=== PATIENT | male | born 1990 | race Caucasian/White ===

== ENCOUNTER 2016-08-06 10:38 | Inpatient (IN) | payer MEDICAID ==
[2016-08-06 12:38] LABS: BASO % 0.6 % (0.0-2.0); EOS # 0.1 K/uL (0.0-0.7); EOS % 1.7 % (0.0-4.0); HEMATOCRIT 48.5 % (35.0-51.0); LYMPH # 1.4 K/uL (1.0-4.3); LYMPH % 19.9 % (20.0-40.0); MEAN CORPUSCULAR HGB CONC 32.5 g/dL (33.0-37.0); MEAN PLATELET VOLUME 9.5 fL (7.2-11.7); MONO # 0.6 K/uL (0.0-0.8); RED CELL DISTRIBUTION WIDTH 13.9 % (11.5-14.5); WHITE BLOOD COUNT 7.1 K/uL (4.8-10.8)
[2016-08-06 12:39] LABS: MEAN CELL VOLUME 83.2 fL (80.0-94.0)
[2016-08-06 12:41] LABS: URINE BILIRUBIN NEGATIVE (NEGATIVE); URINE BLOOD NEGATIVE (NEGATIVE); URINE COLOR Yellow (YELLOW); URINE GLUCOSE (UA) NORMAL (Normal); URINE KETONE NEGATIVE (NEGATIVE); URINE LEUKOCYTE ESTERASE NEG Leu/uL (Negative); URINE PROTEIN NEGATIVE (NEGATIVE); URINE UROBILINOGEN NORMAL mg/dL (0.2-1.0)
[2016-08-06 12:46] LABS: CHLORIDE 100 mmol/L (98-107)
[2016-08-06 12:47] LABS: POTASSIUM 3.7 mmol/L (3.6-5.2); SODIUM 141 mmol/L (132-148)
[2016-08-06 12:49] LABS: ALB/GLOB RATIO 1.4 (1.0-2.1); AST/SGOT 30 U/L (17-59); BILIRUBIN,TOTAL 0.3 mg/dL (0.2-1.3); CARBON DIOXIDE 26 mmol/L (22-30); GFR AFRICAN-AMERICAN > 60; TOTAL PROTEIN 7.3 g/dL (6.3-8.3)
[2016-08-06 12:50] LABS: ALCOHOL SERUM < 10 mg/dl (0-10); ALKALINE PHOSPHATASE 96 U/L (38-126); ALT/SGPT 46 U/L (21-72); BLOOD UREA NITROGEN 11 mg/dL (9-20); CALCIUM 8.9 mg/dl (8.6-10.4); GLUCOSE,RANDOM 100 mg/dL (75-110)
--- NOTE | 2016-08-06 13:11 | C.PDOC ---
History Of Present Illness 25 year old male with a history of cocain and alcohol abuse, presents to the ED requesting alcohol detox. Patient states his last drink was yesterday and has no physical complaints at this time. Time Seen by Provider: 08/06/16 11:44 Chief Complaint (Nursing): Substance Abuse History Per: Patient History/Exam Limitations: no limitations Current Symptoms Are (Timing): Still Present Modifying Factor(s): Alcohol Past Medical History Reviewed: Historical Data, Nursing Documentation, Vital Signs Vital Signs: Last Vital Signs Temp 97.6 F 08/07/16 18:47 Pulse 95 H 08/07/16 18:47 Resp 18 08/07/16 18:47 BP 145/84 08/07/16 18:47 Pulse Ox 97 08/07/16 18:47 - Medical History PMH: Anxiety, Asthma, HTN Family History: States: Unknown Family Hx - Social History Hx Alcohol Use: Yes Hx Substance Use: No - Immunization History Hx Tetanus Toxoid Vaccination: Yes Hx Influenza Vaccination: No Hx Pneumococcal Vaccination: No Review Of Systems Except As Marked, All Systems Reviewed And Found Negative. Constitutional: Positive for: Other (+Alcohol detox). Negative for: Fever, Chills Cardiovascular: Negative for: Chest Pain Respiratory: Negative for: Shortness of Breath Gastrointestinal: Negative for: Nausea, Vomiting Psych: Negative for: Withdrawal Physical Exam - Physical Exam Appears: Non-toxic, No Acute Distress Skin: Normal Color, Warm, Dry Head: Atraumatic, Normacephalic Eye(s): bilateral: Normal Inspection Oral Mucosa: Moist Chest: Symmetrical, No Deformity Cardiovascular: Rhythm Regular Respiratory: Normal Breath Sounds, No Accessory Muscle Use, No Rales, No Rhonchi , No Wheezing Extremity: Normal ROM Neurological/Psych: Oriented x3, Normal Speech, Normal Cognition ED Course And Treatment - Laboratory Results Result Diagrams: 08/06/16 12:31 08/06/16 12:31 Lab Interpretation: Abnormal (tox + cocaine) O2 Sat by Pulse Oximetry: 95 (Room air) Pulse Ox Interpretation: Normal Progress Note: Blood work and urinalysis ordered and reviewed. Case discussed with the crisis healthcare market consultant who agreed to evaluate the patient. Disposition Doctor Will See Patient In The: Hospital Counseled Patient/Family Regarding: Studies Performed, Diagnosis - Disposition Disposition: HOSPITALIZED Disposition Time: 18:00 Condition: GOOD - Clinical Impression Clinical Impression: Drug abuse, Alcohol dependence - Scribe Statement The provider has reviewed the documentation as recorded by the Scribe Sandra Mann. Provider Attestation: All medical record entries made by the Scribe were at my direction and personally dictated by me. I have reviewed the chart and agree that the record accurately reflects my personal performance of the history, physical exam, medical decision making, and the department course for this patient. I have also personally directed, reviewed, and agree with the discharge instructions and disposition.
[2016-08-06] MEDS: Multiple Vitamins Tab PO SCH (16:07)
[2016-08-07] MEDS: Multiple Vitamins Tab PO SCH (10:19)
--- NOTE | 2016-08-07 12:37 | PCM.PSYCH ---
Initial Psychiatric Evaluation - Initial Psychiatric Evaluation Type of Admission: Voluntary Legal Status: Capacity Chief Complaint (in patient's own words): "I need to stop alcohol" History of Present Illness and Precipitating Events: The patient is seen, chart reviewed and case discussed. This is a 25-year-old single male, with one child who is 2 years old and with his ex-girlfriend. 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 He stays with friends and practically homeless. The patient is here for alcohol detox and he admits to drinking up to one bottle of vodka daily and 12 pack beer. He has been drinking for the last 10 years and this is his first detox. He has never been to AA or rehabilitation. He also snorts cocaine 2 g per day for the past 3 years. He denies all other drugs Feels anxious and panicky at times. Past psych history: Panic disorder but not treated. No admissions and no suicide attempts. Family psych history: Denies Medical history: Asthma Current Medications: Active Medications Generic Name Dose Route Start Last Admin Trade Name Freq PRN Reason Stop Dose Admin Albuterol 1 puff 08/06/16 15:27 Ventolin Hfa 90 Mcg/Actuation (8 G) INH RQ4 PRN SOB Amlodipine Besylate 5 mg 08/06/16 15:30 08/07/16 10:20 Norvasc PO 5 mg DAILY ANNA MARIE Administration Chlordiazepoxide 25 mg 08/06/16 15:29 Librium PO Q4H PRN Alcohol Withdrawal Chlordiazepoxide 25 mg 08/06/16 18:00 08/07/16 11:24 Librium PO 08/10/16 17:59 25 mg Q6 ANNA MARIE Administration Taper Clonidine HCl 0.1 mg 08/06/16 15:29 Catapres PO Q4H PRN Symptoms of alcohol withdrawl Escitalopram Oxalate 5 mg 08/07/16 10:45 Lexapro PO DAILY ANNA MARIE Folic Acid 1 mg 08/06/16 15:30 08/07/16 10:19 Folic Acid PO 1 mg DAILY ANNA MARIE Administration Gabapentin 300 mg 08/06/16 18:00 08/07/16 10:19 Neurontin PO 300 mg BID ANNA MARIE Administration Hydroxyzine HCl 50 mg 08/06/16 15:27 Atarax PO Q6H PRN Anxiety Ibuprofen 600 mg 08/06/16 15:27 Motrin Tab PO Q6H PRN Pain, moderate (4-7) Montelukast Sodium 10 mg 08/06/16 22:00 08/06/16 21:32 Singulair PO 10 mg HS ANNA MARIE Administration Multivitamins 1 tab 08/06/16 15:30 08/07/16 10:19 Hexavitamin PO 1 tab DAILY ANNA MARIE Administration Pneumococcal Polyvalent Vaccine 0.5 ml 08/08/16 09:00 Pneumovax 23 Vaccine IM 08/08/16 09:01 .ONCE ONE Thiamine HCl 100 mg 08/06/16 15:30 08/07/16 10:19 Vitamin B1 Tab PO 100 mg DAILY ANNA MARIE Administration Trazodone HCl 100 mg 08/06/16 15:27 08/06/16 21:32 Desyrel PO 100 mg HS PRN Administration Insomnia Past Psychiatric History - Past Psychiatric History Previous Treatment History: None Pertinent Medical Hx (Current Medical&Sleep Prob, Allergies): Allergies Allergy/AdvReac Type Severity Reaction Status Date / Time Penicillins Allergy Verified 08/06/16 10:56 Albuterol HFA [Ventolin HFA 90 mcg/actuation (8 g)] 2 puff IH [id number] PRN #1 puff 06/15/15 Montelukast [Singulair] 10 mg PO DAILY #30 tab 06/15/15 Review of Systems - Neurological Neurological: UNREMARKABLE - Psychiatric Psychiatric: Abnormal Sleep Pattern, Anxiety, Irritability. absent: Depression , Hallucinations, Homicidal Ideation, Paranoia, Suicidal Ideation Mental Status Examination - Personal Presentation Personal Presentation: Looks older than stated age - Affect Affect: Constricted - Motor Activity Motor Activity: Calm - Reliability in Providing Information Reliability in Providing Information: Good - Speech Speech: Organized - Mood Mood: Anxious - Formal Thought Process Formal Thought Process: No Impairment - Cognitive Functions Orientation: Person, Place, Situation, Time Sensorium: Alert Attention/Concentration: Attentive Estimate of Intelligence: Average Judgement: Intact, as evidence by: Insight regarding need for hospitalization Memory: Recent intact, as evidence by: Ability to recall events of the day, Remote intact, as evidenced by: Abilit to recall sig. life events - Risk Risk: Withdrawal, Diminished functioning - Strength & Assets Inventory Strength & Assets Inventory: Cooperative - Limitations Limitations: Living alone DSM 5 DX - DSM 5 DSM 5 Diagnosis: Alcohol withdrawal Alcohol use disorder, severe Panic disorder, without agoraphobia Cocaine use disorder, severe - Recommended/Plan of Treatment Treatment Recommendations and Plan of Treatment: Alcohol: -Librium detox -As needed medications -[place] and CBT -Attend groups and activities -Support and psychoeducation Cocaine: -Gabapentin -As needed medications -[place] and CBT -Attend groups and activities -Support and psychoeducation Any disorder: -Lexapro -CBT and supportive psychotherapy 34 minutes Projected ELOS: 4 days Prognosis: Good with treatment Discharge Plan and Discharge Criteria: No withdrawal Refer to IOP - Smoking Cessation Smoking Cessation Initiated: Yes
[2016-08-08] MEDS ORDERED: Pneumococcal 23-Valent Vaccine IM ONE (09:00)
[2016-08-08] MEDS: Multiple Vitamins Tab PO SCH (09:21)
--- NOTE | 2016-08-08 16:27 | PCM.PYCHPN ---
Psychiatric Progress Note - Psychiatric Progress Note Patient seen today, length of contact: 20 min Patient Chief Complaint: "I didn't get any sleep" Problems Identified/Issues Discussed: The pt is seen, chart reviewed, case discussed with staff. Pt's mood is low today. Pt states that he feels anxious, depressed. Pt admits to vomiting, chills, sweating, headaches and shaking. Pt states that the symptoms interfered with his sleep. Pt denies thoughts of suicide or thoughts of hurting other people. Pt stated that he has been having visual hallucinations of shadows passing by. His current plan is to enter a rehab facility in [place]. After care discussed, support and psychoeducation given. DSM 5 Symptoms Update: Alcohol withdrawal Alcohol use disorder, severe Panic disorder, without agoraphobia Cocaine use disorder, severe Medication Change: Yes (Librium Taper ) Medical Record Reviewed: Yes Mental Status Examination - Cognitive Function Orientation: Person, Place, Situation, Time Memory: Intact Attention: WNL Concentration: WNL Association: WNL Fund of Knowledge: WNL - Mood Mood: Depressed, Anxious Additional comments: Irritable - Affect Affect: Constricted - Speech Speech: Appropriate - Formal Thought Process Formal Thought Process: Hallucinations - Suicidal Ideation Suicidal Ideation: No - Homicidal Ideation Homicidal Ideation: No Goal/Treatment Plan - Goal/Treatment Plan Need for Continued Stay: Severe depression anxiety, Discharge may exacerbated symptoms Progress Toward Problem(s) and Goals/Treatment Plan: Alcohol: -Librium detox -As needed medications -[place] and CBT -Attend groups and activities -Support and psychoeducation Cocaine: -Gabapentin -As needed medications -[place] and CBT -Attend groups and activities -Support and psychoeducation Any disorder: -Lexapro -CBT and supportive psychotherapy Estimated Date of D/C: 08/10/16 - Smoking Cessation Smoking Cessation Initiated: No
[2016-08-08] MEDS: Albuterol HFA 90 mcg/actuation (8 g) INH PRN (19:35)
[2016-08-09] MEDS: Multiple Vitamins Tab PO SCH (10:06)
--- NOTE | 2016-08-09 22:29 | PCM.PYCHPN ---
Psychiatric Progress Note - Psychiatric Progress Note Patient seen today, length of contact: 17 min Patient Chief Complaint: "I didn't get any sleep" Problems Identified/Issues Discussed: The pt is seen, chart reviewed, case discussed with staff. The pt is compliant with medications and reports no side-effects. Symptoms are improving but needs more time to stabilize. Still c/o anxiety and shakes but has mild tremors only After care discussed, support and psychoeducation given. [place] and CBT used briefly. Medication Change: Yes (Librium Taper ) Medical Record Reviewed: Yes Mental Status Examination - Cognitive Function Orientation: Person, Place, Situation, Time Memory: Intact Attention: WNL Concentration: WNL Association: WNL Fund of Knowledge: WNL - Mood Mood: Depressed, Anxious - Affect Affect: Constricted - Speech Speech: Appropriate - Formal Thought Process Formal Thought Process: Hallucinations - Suicidal Ideation Suicidal Ideation: No - Homicidal Ideation Homicidal Ideation: No Goal/Treatment Plan - Goal/Treatment Plan Need for Continued Stay: Severe depression anxiety, Discharge may exacerbated symptoms Progress Toward Problem(s) and Goals/Treatment Plan: Alcohol: -Librium detox -As needed medications -[place] and CBT -Attend groups and activities -Support and psychoeducation Cocaine: -Gabapentin -As needed medications -[place] and CBT -Attend groups and activities -Support and psychoeducation Any disorder: -Lexapro -CBT and supportive psychotherapy Estimated Date of D/C: 08/10/16
[2016-08-09] MEDS: Albuterol HFA 90 mcg/actuation (8 g) INH PRN (23:44)
--- NOTE | 2016-08-10 08:29 | PCM.PYCHDC ---
Mental Status Examination - Mental Status Examination Orientation: Person, Place, Situation, Time Memory: Intact Mood: Anxious Affect: Broad Speech: Appropriate Attention: Poor Concentration: Poor Association: WNL Fund of Knowledge: Poor Formal Thought Process: No Impairment Suicidal Ideation: No Current Homicidal Ideation?: No Discharge Summary - Discharge Note Reason for Hospitalization: heroin detox Consultations:: List each consultation separately and include: 1. Reason for request. 2. Findings. 3. Follow-up Summary of Hospital Course include:: 1. Description of specific treatment plan utilized for patients during their course of treatmen. 2. Summarize the time- course for resolution of acute symptoms and/or regressed behaviors. 3. Describe issues identified and worked on during hospitalization. 4. Describe medication utilized. 5. Describe medical problems identified and treated. 6. Reassessment of suicide risk Summary of Hospital Course: The patient is seen, chart reviewed and case discussed. On admission: This is a 25-year-old single male, with one child who is 2 years old and with his ex-girlfriend. 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 He stays with friends and practically homeless. The patient is here for alcohol detox and he admits to drinking up to one bottle of vodka daily and 12 pack beer. He has been drinking for the last 10 years and this is his first detox. He has never been to AA or rehabilitation. He also snorts cocaine 2 g per day for the past 3 years. He denies all other drugs Feels anxious and panicky at times. Past psych history: Panic disorder but not treated. No admissions and no suicide attempts. Family psych history: Denies Medical history: Asthma Hospital course: The pt was admitted and started on treatment with psychotherapy, support, psychoeducation and medications. [place] and CBT used. The pt attended groups and activities, as well as milieu therapy. All the risks and benefits of medications are discussed and the patient understood and agreed. After care discussed with the patient. He is accepted by [facility] in and went there, however even today he had some anxiety. reassurance given - Final Diagnosis (DSM 5) Condition upon Discharge: GOOD DSM 5: Opioid withdrawal Opioid use d/o severe Anxiety d/o - unspecified Cocaine use d/o - severe Disposition: REHAB FACILITY/REHAB UNIT Follow-up Treatment Plan: Continue below medications after discharge. Follow after care plan as discussed at [facility] Use relapse prevention skills Return to ER or call 911 if suicidal, homicidal or symptoms relapse. Stay away from stress, alcohol and drugs. Prescriptions/Medication Reconciliation: traZODone [Desyrel] 100 mg PO HS PRN #30 tab PRN Reason: Insomnia Multivitamins [Hexavitamin] 1 tab PO DAILY #30 tab Escitalopram [Lexapro] 10 mg PO DAILY #30 tab Gabapentin [Neurontin] 300 mg PO TID #90 cap amLODIPine [Norvasc] 5 mg PO DAILY #30 tab Montelukast [Singulair] 10 mg PO HS #30 tab - Smoking Cessation Smoking Cessation Medication prescribed: No - Antipsychotic Medications Pt discharged on 2 or more routine antipsychotic medications: No
[2016-08-10 08:56] VITALS: BP 142/86; PULSE 95; RESP 20; TEMP 98.2; O2SAT 95
[2016-08-10] MEDS: Multiple Vitamins Tab PO SCH (09:07)
== END 2016-08-10 11:00 | DRG 751 ==
LOC: C.ER 10:38 → C.7D 14:35
PROVIDERS: ADMIT Psychiatry & Neurology Psychiatry; ATTEND Psychiatry & Neurology Psychiatry
PROC: HZ2ZZZZ Detoxification Services for Substance Abuse Treatment (ICD-10-PCS; principal; 2016-08-07)
PROC: HZ32ZZZ Individual Counseling for Substance Abuse Treatment, Cognitive-Behavioral (ICD-10-PCS; 2016-08-07)
PROC: HZ42ZZZ Group Counseling for Substance Abuse Treatment, Cognitive-Behavioral (ICD-10-PCS; 2016-08-07)
PROC: HZ46ZZZ Group Counseling for Substance Abuse Treatment, Psychoeducation (ICD-10-PCS; 2016-08-07)
PROC: HZ36ZZZ Individual Counseling for Substance Abuse Treatment, Psychoeducation (ICD-10-PCS; 2016-08-07)
PROC: HZ59ZZZ Individual Psychotherapy for Substance Abuse Treatment, Supportive (ICD-10-PCS; 2016-08-07)
DX: F10.239 Alcohol dependence with withdrawal, unspecified (principal); F14.10 Cocaine abuse, uncomplicated; I10 Essential (primary) hypertension; J45.909 Unspecified asthma, uncomplicated; F41.0 Panic disorder [episodic paroxysmal anxiety]; F41.8 Other specified anxiety disorders

== ENCOUNTER 2016-09-18 09:51 | Emergency (ER) | payer MEDICAID ==
[2016-09-18 10:06] VITALS: BP 141/97; PULSE 85; RESP 18; TEMP 98.1; O2SAT 96
--- NOTE | 2016-09-18 10:21 | C.PDOC ---
History Of Present Illness 26-year-old male, PMHx includes Hypertension, Asthma and Anxiety, presents to the emergency department requesting refill for all his medications, including b/ p and asthma meds. Sates he is unable to see his PMD until next month. Patient denies any other complaints at this time. No SI/HI. hallucinations Time Seen by Provider: 09/18/16 10:18 Chief Complaint (Nursing): Med Refill History Per: Patient History/Exam Limitations: no limitations Past Medical History Reviewed: Historical Data, Nursing Documentation, Vital Signs Vital Signs: Last Vital Signs Temp 98.1 F 09/18/16 10:05 Pulse 85 09/18/16 10:05 Resp 18 09/18/16 10:05 BP 141/97 H 09/18/16 10:05 Pulse Ox 96 09/18/16 10:39 - Medical History PMH: Anxiety, Asthma, HTN - [facility] Procedures DETOXIFICATION SERVICES FOR SUBSTANCE ABUSE TREATMENT (08/06/16) GROUP BAND HEAD SAW OPERATOR FOR SUBSTANCE ABUSE TREATMENT, PSYCHOEDUCATION (08/06/16) GROUP BAND HEAD SAW OPERATOR FOR SUBSTANCE ABUSE, COGNITIVE BEHAVIORAL (08/06/16) INDIV BAND HEAD SAW OPERATOR FOR SUBSTANCE ABUSE TREATMENT, PSYCHOEDUCATION (08/06/16) INDIV BAND HEAD SAW OPERATOR FOR SUBSTANCE ABUSE, COGNITIVE BEHAVIORAL (08/06/16) INDIV PSYCHOTHERAPY FOR SUBSTANCE ABUSE TREATMENT, SUPPORT (08/06/16) Family History: States: No Known Family Hx - Social History Hx Alcohol Use: Yes Hx Substance Use: No - Immunization History Hx Tetanus Toxoid Vaccination: Yes Hx Influenza Vaccination: No Hx Pneumococcal Vaccination: No Review Of Systems Except As Marked, All Systems Reviewed And Found Negative. Constitutional: Negative for: Fever Cardiovascular: Negative for: Chest Pain Respiratory: Negative for: Cough, Shortness of Breath, Wheezing Gastrointestinal: Negative for: Vomiting Neurological: Negative for: Headache, Dizziness Physical Exam - Physical Exam Appears: Non-toxic, No Acute Distress Skin: Warm, Dry, No Rash Head: Atraumatic Eye(s): bilateral: Normal Inspection Nose: Normal Oral Mucosa: Moist Neck: Normal ROM Respiratory: No Accessory Muscle Use Extremity: Normal ROM Neurological/Psych: Oriented x3 ED Course And Treatment O2 Sat by Pulse Oximetry: 96 Medical Decision Making Medical Decision Making: will refill meds, not actively pyschotic, requesting refills of meds until pmd followup Disposition - Disposition Referrals: [facility] [Outside] [facility] [Outside] [email or web address] [Outside] Disposition: HOME/ ROUTINE Disposition Time: 10:52 Condition: STABLE Additional Instructions: please followup outpt for all medication refills. return to er with worsening symptoms or concerns. Prescriptions: Albuterol HFA [Ventolin HFA 90 mcg/actuation (8 g)] 1 puff IH Q4 PRN #1 inhaler PRN Reason: Wheezing amLODIPine [Norvasc] 5 mg PO DAILY #20 tab Escitalopram Oxalate [Lexapro] 5 mg PO DAILY #20 tab Gabapentin [Neurontin] 300 mg PO BID #28 cap hydrOXYzine HCl [Atarax] 50 mg PO Q6 PRN #20 tab PRN Reason: Anxiety Montelukast [Singulair] 10 mg PO HS PRN #20 tab PRN Reason: Anxiety Thiamine HCl [B-1] 100 mg PO DAILY #20 tablet traZODone [Desyrel] 100 mg PO HS PRN #7 tab PRN Reason: Insomnia Instructions: Medicine Refill (ED) - Clinical Impression Clinical Impression: Medication refill - Scribe Statement The provider has reviewed the documentation as recorded by the Anthonyibdhara Oconnor All medical record entries made by the Scribe were at my direction and personally dictated by me. I have reviewed the chart and agree that the record accurately reflects my personal performance of the history, physical exam, medical decision making, and the department course for this patient. I have also personally directed, reviewed, and agree with the discharge instructions and disposition.
== END 2016-09-18 10:38 | disposition home or self-care (01) ==
LOC: C.ER 09:51
DX: Z76.0 Encounter for issue of repeat prescription (principal); I10 Essential (primary) hypertension; J45.909 Unspecified asthma, uncomplicated; F41.9 Anxiety disorder, unspecified

== ENCOUNTER 2016-10-05 07:34 | Inpatient (IN) | payer MEDICAID ==
[2016-10-05] MEDS ORDERED: Albuterol-Ipratrop 3 mg / 0.5 (3 ml) UD ONE (07:49)
[2016-10-05] MEDS: Albuterol-Ipratrop 3 mg / 0.5 (3 ml) UD IH SCH ×3 (07:55→08:25)
[2016-10-05 08:11] LABS: BASO # 0.1 K/uL (0.0-0.2); BASO % 0.5 % (0.0-2.0); EOS # 0.1 K/uL (0.0-0.7); EOS % 0.7 % (0.0-4.0); HEMATOCRIT 47.4 % (35.0-51.0); LYMPH # 1.1 K/uL (1.0-4.3); LYMPH % 7.2 % (20.0-40.0); MEAN CELL VOLUME 83.3 fL (80.0-94.0); MEAN CORPUSCULAR HEMOGLOBIN 27.8 pg (27.0-31.0); MEAN CORPUSCULAR HGB CONC 33.4 g/dL (33.0-37.0); MONO # 0.8 K/uL (0.0-0.8); MONO % 5.5 % (0.0-10.0); PLATELET COUNT 219 K/uL (130-400); RED CELL DISTRIBUTION WIDTH 14.7 % (11.5-14.5); WHITE BLOOD COUNT 14.8 K/uL (4.8-10.8)
[2016-10-05 08:22] LABS: CHLORIDE 105 mmol/L (98-107)
[2016-10-05 08:23] LABS: SODIUM 139 mmol/L (132-148)
[2016-10-05 08:24] LABS: POTASSIUM 3.7 mmol/L (3.6-5.2)
[2016-10-05 08:26] LABS: ALB/GLOB RATIO 1.5 (1.0-2.1); ALKALINE PHOSPHATASE 101 U/L (38-126); ALT/SGPT 33 U/L (21-72); AST/SGOT 35 U/L (17-59); BILIRUBIN,TOTAL 0.7 mg/dL (0.2-1.3); BLOOD UREA NITROGEN 12 mg/dL (9-20); CALCIUM 8.7 mg/dl (8.6-10.4); CARBON DIOXIDE 23 mmol/L (22-30); GFR AFRICAN-AMERICAN > 60; GLUCOSE,RANDOM 122 mg/dL (75-110); TOTAL PROTEIN 6.8 g/dL (6.3-8.3)
[2016-10-05 08:43] LABS: NEUTROPHIL 89 % (50-75); TOTAL CELLS COUNTED 100
--- NOTE | 2016-10-05 08:44 | C.PDOC ---
History Of Present Illness Patient is a 26 y/o male, whose PMHx includes asthma, presents to the ED for evaluation of increased shortness of breath for the last 3-4 days. Pt reports using his albuterol nebulizer at home with no relief. Pt has been seen here multiple times in the past with similar complaints, but has never been admitted to ICU or intubated in the past. Pt was given 3 nebulizer treatments, IV Solumedrol, and Magnesium in field. Otherwise, pt denies any fever, chills, n/v/ d, chest pain, cough, or any other associated symptoms at this time. Time Seen by Provider: 10/05/16 07:44 Chief Complaint (Nursing): Respiratory Distress History Per: Patient History/Exam Limitations: no limitations Onset/Duration Of Symptoms: Days (4) Current Symptoms Are (Timing): Still Present Current Respiratory Medications: Albuterol Severity: None Pain Scale Rating Of: 0 Associated Symptoms: denies: Fever, Chills, Sweating, Chest Pain, Bloody Cough, Productive Cough, Heart Racing, Leg/Calf Pain, Ankle/Leg Swelling, Dizziness, Light-headedness, Anxiety, Tingling In Hands Or Face, Musle Spasms In Hands Or Feet Recent travel outside of the [place]: No Additional History Per: Patient, EMS Past Medical History Reviewed: Historical Data, Nursing Documentation, Vital Signs Vital Signs: Last Vital Signs Temp 97.1 F L 10/05/16 16:24 Pulse 107 H 10/05/16 16:45 Resp 22 10/05/16 16:45 BP 119/67 10/05/16 16:45 Pulse Ox 93 L 10/05/16 16:45 - Medical History PMH: Anxiety, Asthma, HTN Denies: Diabetes, Hepatitis, HIV, Chronic Kidney Disease, Seizures, Sexually Transmitted Disease - [facility] Procedures DETOXIFICATION SERVICES FOR SUBSTANCE ABUSE TREATMENT (08/06/16) GROUP PEER SPECIALIST FOR SUBSTANCE ABUSE TREATMENT, PSYCHOEDUCATION (08/06/16) GROUP PEER SPECIALIST FOR SUBSTANCE ABUSE, COGNITIVE BEHAVIORAL (08/06/16) INDIV PEER SPECIALIST FOR SUBSTANCE ABUSE TREATMENT, PSYCHOEDUCATION (08/06/16) INDIV PEER SPECIALIST FOR SUBSTANCE ABUSE, COGNITIVE BEHAVIORAL (08/06/16) INDIV PSYCHOTHERAPY FOR SUBSTANCE ABUSE TREATMENT, SUPPORT (08/06/16) Family History: States: Unknown Family Hx - Social History Hx Alcohol Use: Yes Hx Substance Use: No - Immunization History Hx Tetanus Toxoid Vaccination: Yes Hx Influenza Vaccination: No Hx Pneumococcal Vaccination: No Review Of Systems Except As Marked, All Systems Reviewed And Found Negative. Constitutional: Negative for: Fever, Chills Cardiovascular: Negative for: Chest Pain, Palpitations, Light Headedness Respiratory: Positive for: Shortness of Breath. Negative for: Cough, Sputum Gastrointestinal: Negative for: Nausea, Vomiting, Abdominal Pain Neurological: Negative for: Headache, Dizziness Physical Exam - Physical Exam Appears: Non-toxic, Other (In mild respiratory distress) Skin: Normal Color, Warm, Dry Head: Atraumatic, Normacephalic Eye(s): bilateral: Normal Inspection, EOMI Neck: Normal ROM, Supple Chest: Symmetrical, No Tenderness Cardiovascular: Rhythm Regular, No Murmur Respiratory: No Rales, No Rhonchi, Wheezing (diffuse) Gastrointestinal/Abdominal: Soft, No Tenderness Extremity: Normal ROM Neurological/Psych: Oriented x3, Normal Speech, Normal Cognition ED Course And Treatment - Laboratory Results Result Diagrams: 10/05/16 07:59 10/05/16 07:59 ECG: Interpreted By Me, Viewed By Me ECG Rhythm: Sinus Tachycardia ECG Interpretation: Normal Rate From EC (bpm) O2 Sat by Pulse Oximetry: 93 (on RA) - Radiology CXR: Interpreted by Me, Viewed By Me CXR Interpretation: Yes: Infiltrates (right lower lobe) Progress Note: Labs, CXR, EKG ordered and reviewed. Pt was given nebulizer treatments, and Toradol in the ER. Medical Decision Making Medical Decision Making: Treated with multiple nebs Post (+) cxr cultures done pt started on avalox as he is pen allergic With small amount left in IV pt noted generalized urticaria IV stopped and pt treated with IV benadryl In view of the ongoing wheezing and SOB with (+) CXR will need admission for further treatment Case discussed with dr Hui who agrees with plan Disposition - Disposition Disposition: HOSPITALIZED Disposition Time: 10:30 Condition: FAIR - Clinical Impression Clinical Impression: Pneumonia, Asthma - Scribe Statement The provider has reviewed the documentation as recorded by the Scribe Cyril Stewart All medical record entries made by the Scribe were at my direction and personally dictated by me. I have reviewed the chart and agree that the record accurately reflects my personal performance of the history, physical exam, medical decision making, and the department course for this patient. I have also personally directed, reviewed, and agree with the discharge instructions and disposition.
[2016-10-05] MEDS ORDERED: Moxifloxacin IV 400mg/250ml NS 400 MG/250 ML BAG IVPB ONE ×2 (08:47→09:39)
--- NOTE | 2016-10-05 10:32 | RAD ---
PROCEDURE: CHEST RADIOGRAPH, 1 VIEW HISTORY: SOB COMPARISON: 08/06/2015 FINDINGS: LUNGS: Patchy right basilar opacity. Likely pneumonia, right middle lobe versus lower lobe. No other significant opacity identified elsewhere. PLEURA: No pneumothorax or pleural fluid seen. CARDIOVASCULAR: Normal. OSSEOUS STRUCTURES: No significant abnormalities. VISUALIZED UPPER ABDOMEN: Normal. OTHER FINDINGS: None. IMPRESSION: Right basilar infiltrate, likely pneumonia. Follow-up advised
[2016-10-05] MEDS ORDERED: Oxycodone/Acetaminophen 5/325 mg Tab PO STA (10:48)
[2016-10-05] MEDS ORDERED: Oxycodone/Acetaminophen 5/325 mg Tab ONE (10:58)
[2016-10-05] MEDS ORDERED: DiphenhydrAMINE 50 mg/ml Inj IVP STA (11:05)
[2016-10-05] MEDS ORDERED: DiphenhydrAMINE 50 mg/ml Inj ONE (11:08)
[2016-10-05] MEDS ORDERED: Moxifloxacin IV 400mg/250ml NS 400 MG/250 ML BAG IVPB SCH (11:30)
[2016-10-05] MEDS ORDERED: Azithromycin 500mg/250ML NS 500 MG/250 ML BAG IVPB ONE (12:47)
[2016-10-05] MEDS: Azithromycin 500mg/250ML NS 500 MG/250 ML BAG IVPB SCH (12:50)
[2016-10-05] MEDS ORDERED: Albuterol-Ipratrop 3 mg / 0.5 (3 ml) UD INH ONE (15:30)
[2016-10-05] MEDS ORDERED: Albuterol-Ipratrop 3 mg / 0.5 (3 ml) UD INH PRN (15:43)
[2016-10-05] MEDS ORDERED: MethylPREDNISolone 40 mg Vial IVP ONE (15:45)
[2016-10-05] MEDS: Albuterol 0.083% Inhal Sol (2.5 mg/3 mL) UD INH SCH ×2 (15:57→19:17)
--- NOTE | 2016-10-05 15:57 | PCM.RRTMUL ---
GEAR SETTER Nurses Assessment - Vital Signs Blood Pressure:: 129/52 Pulse Rate:: 91 Respiratory Rate:: 20 - Constitutional Appears: In Acute Distress - Head Head Exam: NORMOCEPHALIC - Eyes Eye Exam: EOMI - Respiratory Exam Respiratory Exam: Wheezes, Respiratory Distress - Cardiovascular Exam Cardiovascular Exam: Tachycardia, +S1, +S2 - Neurological Exam Neurological Exam: Alert, Awake Plan - A. End of GEAR SETTER Vital Signs: Blood Pressure: 113/71 Pulse Rate: 107 Respiratory Rate: 20 O2 Sat by Pulse Oximetry: 95 - B. Assessment of Findings&Treatment Plan GEAR SETTER called for shortness of breath, HTN with initial blood pressure 207/172. Patient was given duonebs, solumedrol 40mg, 1mg morphine, aspirin 325mg, and amlodipine 5mg. Patient was given 125mg solumedrol by EMS per ER triage note. Patient was complaining of chest pain and MASON panel and EKG ordered. EKG sinus tachycardia with rate 102. Patient initiated on BiPAP 12/6 but patient refused. Patient on ventimask receiving duoneb. Patient will have q2 duonebs, q15 vitals for the next 2h, will continue to check MASON panel. Patient's bilateral wheezing improved after multiple duoneb treatment.
--- NOTE | 2016-10-05 19:00 | CP.PCM.CON ---
History of Present Illness - History of Present Illness History of Present Illness: 26 year old connie with hx of asthma, smoker, multiple visits with SOB, prior echo with NL LV contractility, admitted with sob, treated for asthma with improvement, initialy with elevated BP, after amlodopine, improved now 130 syst. , no CP. check echo observe. + cocaine in last visit's urine, now denies Review of Systems - Review of Systems Systems not reviewed;Unavailable: Respiratory Distress - Constitutional Constitutional: Anorexia, Weakness - EENT Eyes: absent: Discharge Ears: absent: Decreased Hearing, Ear Discharge, Dizziness Nose/Mouth/Throat: Nasal Congestion. absent: Epistaxis - Cardiovascular Cardiovascular: absent: Acrocyanosis, Chest Pain, Diaphoresis, Palpitations, Syncope - Respiratory Respiratory: Cough, Dyspnea. absent: Hemoptysis - Gastrointestinal Gastrointestinal: absent: Abdominal Pain, Diarrhea, Vomiting - Genitourinary Genitourinary: absent: Change in Urinary Stream Past Patient History - Infectious Disease Hx of Infectious Diseases: None - Past Medical History & Family History Past Medical History?: Yes - Past Social History Smoking Status: Never Smoked - CARDIAC Hx Hypertension: Yes - PULMONARY Hx Asthma: Yes - NEUROLOGICAL Hx Seizures: No - HEENT Hx HEENT Problems: No - RENAL Hx Chronic Kidney Disease: No - ENDOCRINE/METABOLIC Hx Endocrine Disorders: No - HEMATOLOGICAL/ONCOLOGICAL Hx Human Immunodeficiency Virus (HIV): No - INTEGUMENTARY Hx Dermatological Problems: No - MUSCULOSKELETAL/RHEUMATOLOGICAL Hx Musculoskeletal Disorders: No Hx Falls: No - GASTROINTESTINAL Hx Gastrointestinal Disorders: No - GENITOURINARY/GYNECOLOGICAL Hx Sexually Transmitted Disorders: No - PSYCHIATRIC Hx Anxiety: Yes Hx Substance Use: No - SURGICAL HISTORY Hx Surgeries: No - ANESTHESIA Hx Anesthesia: No Meds Allergies/Adverse Reactions: Allergies Allergy/AdvReac Type Severity Reaction Status Date / Time FISH Allergy RASH Verified 10/05/16 13:01 Penicillins Allergy RASH Verified 10/05/16 13:01 - Medications Medications: Current Medications Albuterol Sulfate (Albuterol 0.083% Inhal Danna (2.5 Mg/3 Ml) Ud) 2.5 mg INH RQ6 [facility] Last Admin: 10/05/16 15:57 Dose: 2.5 mg Albuterol/Ipratropium (Duoneb 3 Mg/0.5 Mg (3 Ml) Ud) 3 ml INH RQ2 PRN PRN Reason: Shortness of Breath Last Admin: 10/05/16 15:58 Dose: 3 ml Amlodipine Besylate (Norvasc) 5 mg PO DAILY [facility] Escitalopram Oxalate (Lexapro) 10 mg PO DAILY [facility] Gabapentin (Neurontin) 300 mg PO TID [facility] Last Admin: 10/05/16 13:54 Dose: 300 mg Hydralazine HCl (Apresoline) 25 mg PO TID PRN PRN Reason: Systolic Blood Pressure Hydroxyzine HCl (Atarax) 50 mg PO Q6 PRN PRN Reason: Anxiety Azithromycin (Zithromax 500mg In Ns Addvantage) 500 mg in 250 mls @ 167 mls/hr IVPB Q24H [facility] Last Admin: 10/05/16 12:50 Dose: 167 mls/hr Methylprednisolone (Solu-Medrol) 40 mg IV Q12 [facility] Montelukast Sodium (Singulair) 10 mg PO HS [facility] Multivitamins (Hexavitamin) 1 tab PO DAILY [facility] Thiamine HCl (Vitamin B1 Tab) 100 mg PO DAILY [facility] Trazodone HCl (Desyrel) 100 mg PO HS PRN PRN Reason: Insomnia Physical Exam - Constitutional Appears: Non-toxic - Head Exam Head Exam: ATRAUMATIC - Eye Exam Eye Exam: EOMI - ENT Exam ENT Exam: Mucous Membranes Moist - Neck Exam Neck exam: Negative for: Lymphadenopathy, Thyromegaly - Respiratory Exam Respiratory Exam: Prolonged Expiratory Phase, Rhonchi, Wheezes - Cardiovascular Exam Cardiovascular Exam: REGULAR RHYTHM. absent: Systolic Murmur - GI/Abdominal Exam GI & Abdominal Exam: Normal Bowel Sounds. absent: Organomegaly - Rectal Exam Rectal Exam: Deferred - Extremities Exam Extremities exam: Positive for: normal capillary refill. Negative for: calf tenderness - Neurological Exam Neurological exam: Alert, Oriented x3 - Psychiatric Exam Psychiatric exam: Anxious - Skin Skin Exam: Dry Results - Vital Signs Recent Vital Signs: Last Vital Signs Temp 97.1 F L 10/05/16 16:24 Pulse 107 H 10/05/16 16:45 Resp 22 10/05/16 16:45 BP 119/67 10/05/16 16:45 Pulse Ox 93 L 10/05/16 18:52 - Labs Result Diagrams: 10/05/16 07:59 10/05/16 07:59 Labs: Laboratory Results - last 24 hr 10/05/16 15:57 Total Creatine Kinase 232 H CK-MB (Mass) 2.73 Troponin I, Quant < 0.0120 Assessment & Plan (1) Hypertension Status: Acute Comment: on treatment, echo (2) Asthma Status: Chronic Comment: observe
[2016-10-05] MEDS ORDERED: Iodixanol 320 MG/ML 100 ML BOTTLE IV ONE (19:18)
--- NOTE | 2016-10-05 21:50 | CT ---
EXAM: CT Chest Without and With Intravenous Contrast CLINICAL HISTORY: 26 years old, male; Pain; Other: Chest/back; Chest pain; Type not specified; Additional info: Aortic dissection TECHNIQUE: Axial computed tomography images of the chest without and with intravenous contrast during the arterial phase of enhancement. This CT exam was performed using one or more of the following dose reduction techniques: automated exposure control, adjustment of the mA and/or kV according to patient size, and/or use of iterative reconstruction technique. Coronal and sagittal reformatted images were created and reviewed. CONTRAST: 100 mL of visipaque 320 administered intravenously. COMPARISON: CT - ANGIO CHEST PE PROTOCO 12/01/2014 11:28:17 PM FINDINGS: Pulmonary arteries: No pulmonary embolism. Aorta: No aortic dissection. Lungs: Patchy groundglass and predominantly bandlike airspace opacities, most of which appear unchanged. Pleural space: No significant effusion. No pneumothorax. Heart: Mild cardiomegaly. No significant pericardial effusion. Bones/joints: No acute fracture. No dislocation. Soft tissues: Unremarkable. Lymph nodes: No pathologically enlarged lymph nodes. IMPRESSION: 1. No aortic dissection. 2. Probable atelectasis/scarring. Superimposed pneumonia not entirely excluded. 3. Incidental/non-acute findings are described above. EXAM: CT Abdomen and Pelvis With Intravenous Contrast CLINICAL HISTORY: 26 years old, male; Pain; Other: Chest/back; Chest pain; Type not specified; Additional info: Aortic dissection TECHNIQUE: Axial computed tomography images of the abdomen and pelvis with intravenous contrast. This CT exam was performed using one or more of the following dose reduction techniques: automated exposure control, adjustment of the mA and/or kV according to patient size, and/or use of iterative reconstruction technique. Coronal and sagittal reformatted images were created and reviewed. CONTRAST: 100 mL of visipaque 320 administered intravenously. COMPARISON: No relevant prior studies available. FINDINGS: ABDOMEN: Liver: Mild fatty infiltration. Gallbladder and bile ducts: No calcified stones. No ductal dilation. Pancreas: No ductal dilation. No mass. Spleen: No splenomegaly. Adrenals: No mass. Kidneys and ureters: No mass. No hydronephrosis. Stomach and bowel: Few scattered diverticula within colon. No associated inflammatory stranding. Appendix: No findings to suggest acute appendicitis. PELVIS: Bladder: Borderline bladder wall thickening, 4-5 mm. Incomplete distention, limiting evaluation. Reproductive: Unremarkable as visualized. ABDOMEN and PELVIS: Intraperitoneal space: No significant fluid collection. No free air. Bones/joints: No acute fracture. Soft tissues: Unremarkable. Vasculature: No aortic dissection. Lymph nodes: No pathologically enlarged lymph nodes. IMPRESSION: 1. No aortic dissection. 2. Mild cystitis vs underdistention. Correlate with urinalysis. 3. Incidental/non-acute findings are described above.
[2016-10-05] MEDS ORDERED: MethylPREDNISolone 40 mg Vial IV SCH (22:00)
[2016-10-05 22:19] LABS: RBC URINE 2 /hpf (0-3); URINE BACTERIA OCC (<OCC); URINE BILIRUBIN NEGATIVE (NEGATIVE); URINE BLOOD NEGATIVE (NEGATIVE); URINE COLOR Yellow (YELLOW); URINE GLUCOSE (UA) 2+ mg/dL (Normal); URINE KETONE TRACE mg/dL (NEGATIVE); URINE PROTEIN 1+ mg/dL (NEGATIVE); URINE UROBILINOGEN NORMAL mg/dL (0.2-1.0); WBC URINE 9 /hpf (0-5)
[2016-10-05 22:20] LABS: URINE LEUKOCYTE ESTERASE 1+ Leu/uL (Negative)
--- NOTE | 2016-10-06 00:37 | CP.PCM.CON ---
History of Present Illness - History of Present Illness History of Present Illness: 26 M with h/o htn, anxiety, seasonal asthma admitted hospital with exacerbation of the asthma, suspected rll pna. Patient evaluated for recurrent c/o chest pain , variable bp reading upon request of the pmd. At the time of eval patient c/o chest pain on deep breathing, coughing radiating to right arm, as per him during this time of the year he gets asthma exacerbation which stated about 4 days but had fever, phlegm, cough for last 2 days. Earlier BRICK WASHER also called and events reviewed. PMH as above PSH none Allergies PCN gets hieves, patient also developed hieves post avelox given in ER Social history denie smoking/alcohol h/o substance abuse including cocaine and has been to rehab for same Family history not contributory Meds reviewed Hospital meds, labs, event reviewed CTA done has ground glass appearance on right side, no dissection/pe Review of Systems - Review of Systems All systems: reviewed and no additional remarkable complaints except (HPI) Past Patient History - Infectious Disease Hx of Infectious Diseases: None - Past Medical History & Family History Past Medical History?: Yes - Past Social History Smoking Status: Never Smoked Alcohol: None Drugs: Denies, Other (cocaine in past, denies currently) Home Situation {Lives}: With Family Domestic Violence: Negative - CARDIAC Hx Hypertension: Yes - PULMONARY Hx Asthma: Yes - NEUROLOGICAL Hx Seizures: No - HEENT Hx HEENT Problems: No - RENAL Hx Chronic Kidney Disease: No - ENDOCRINE/METABOLIC Hx Endocrine Disorders: No - HEMATOLOGICAL/ONCOLOGICAL Hx Human Immunodeficiency Virus (HIV): No - INTEGUMENTARY Hx Dermatological Problems: No - MUSCULOSKELETAL/RHEUMATOLOGICAL Hx Musculoskeletal Disorders: No Hx Falls: No - GASTROINTESTINAL Hx Gastrointestinal Disorders: No - GENITOURINARY/GYNECOLOGICAL Hx Sexually Transmitted Disorders: No - PSYCHIATRIC Hx Anxiety: Yes Hx Substance Use: No - SURGICAL HISTORY Hx Surgeries: No - ANESTHESIA Hx Anesthesia: No Meds Allergies/Adverse Reactions: Allergies Allergy/AdvReac Type Severity Reaction Status Date / Time FISH Allergy RASH Verified 10/05/16 13:01 Penicillins Allergy RASH Verified 10/05/16 13:01 - Medications Medications: Current Medications Albuterol Sulfate (Albuterol 0.083% Inhal Danna (2.5 Mg/3 Ml) Ud) 2.5 mg INH RQ6 [facility] Last Admin: 10/05/16 19:17 Dose: 2.5 mg Albuterol/Ipratropium (Duoneb 3 Mg/0.5 Mg (3 Ml) Ud) 3 ml INH RQ2 PRN PRN Reason: Shortness of Breath Last Admin: 10/05/16 15:58 Dose: 3 ml Amlodipine Besylate (Norvasc) 5 mg PO DAILY [facility] Escitalopram Oxalate (Lexapro) 10 mg PO DAILY [facility] Gabapentin (Neurontin) 300 mg PO TID [facility] Last Admin: 10/05/16 20:04 Dose: 300 mg Hydralazine HCl (Apresoline) 25 mg PO TID PRN PRN Reason: Systolic Blood Pressure Hydroxyzine HCl (Atarax) 50 mg PO Q6 PRN PRN Reason: Anxiety Azithromycin (Zithromax 500mg In Ns Addvantage) 500 mg in 250 mls @ 167 mls/hr IVPB Q24H [facility] Last Admin: 10/05/16 12:50 Dose: 167 mls/hr Methylprednisolone (Solu-Medrol) 40 mg IV Q12 [facility] Last Admin: 10/05/16 21:45 Dose: 40 mg Montelukast Sodium (Singulair) 10 mg PO HS [facility] Last Admin: 10/05/16 21:46 Dose: 10 mg Multivitamins (Hexavitamin) 1 tab PO DAILY [facility] Thiamine HCl (Vitamin B1 Tab) 100 mg PO DAILY [facility] Trazodone HCl (Desyrel) 100 mg PO HS PRN PRN Reason: Insomnia Last Admin: 10/05/16 21:45 Dose: 100 mg Physical Exam - Additional Findings Additional findings: * Not in distres, spo2 91% on RA, manual bp check by b/l 140/80 * HEENT HARSH * Neck Supple * CVS Regular, no gallop or rub * Chest scattered ronchi mid back medially * PA soft nt, bs present * Ext no edema * Skin normal turgor, tremors noticed Results - Vital Signs Recent Vital Signs: Last Vital Signs Temp 97.9 F 10/05/16 20:35 Pulse 106 H 10/05/16 20:35 Resp 20 10/05/16 20:35 BP 119/66 10/05/16 20:35 Pulse Ox 93 L 10/05/16 20:35 - Labs Result Diagrams: 10/05/16 07:59 10/05/16 07:59 Labs: Laboratory Results - last 24 hr 10/05/16 10/05/16 10/05/16 15:57 22:07 22:07 Total Creatine Kinase 232 H CK-MB (Mass) 2.73 Troponin I, Quant < 0.0120 Urine Color Yellow Urine Clarity Hazy Urine pH 5.0 Ur Specific Brayton 1.040 H Urine Protein 1+ H Urine Glucose (UA) 2+ H Urine Ketones Trace Urine Blood Negative Urine Nitrate Negative Urine Bilirubin Negative Urine Urobilinogen Normal Ur Leukocyte Esterase 1+ H Urine WBC (Auto) 9 H Urine RBC (Auto) 2 Ur Squamous Epith Cells 1 Urine Bacteria Occ H Urine Opiates Screen Positive Urine Methadone Screen Negative Ur Barbiturates Screen Negative Ur Phencyclidine Scrn Negative Ur Amphetamines Screen Negative U Benzodiazepines Scrn Negative U Oth Cocaine Metabols Positive U Cannabinoids Screen Negative 10/05/16 22:23 Total Creatine Kinase 194 H CK-MB (Mass) 3.44 H Troponin I, Quant < 0.0120 Urine Color Urine Clarity Urine pH Ur Specific [place] Urine Protein Urine Glucose (UA) Urine Ketones Urine Blood Urine Nitrate Urine Bilirubin Urine Urobilinogen Ur Leukocyte Esterase Urine WBC (Auto) Urine RBC (Auto) Ur Squamous Epith Cells Urine Bacteria Urine Opiates Screen Urine Methadone Screen Ur Barbiturates Screen Ur Phencyclidine Scrn Ur Amphetamines Screen U Benzodiazepines Scrn U Oth Cocaine Metabols U Cannabinoids Screen Assessment & Plan - Assessment and Plan (Free Text) Assessment: * Asthma exacerbation with RLL pna * Anxiety * Variable bp due to nebs, tremors, pluretic, manual more dependable Plan: * Abx, neb, steroid * Avoid avelox, pcn, may have to use aztreonam * pain control may have to use tramadol/opiods, due to steroids being use, may avoid NSAIDS * GI/DVT prophylaxis * D/w PMD about plan/care, could observe in telemetry.
[2016-10-06] MEDS: Albuterol 0.083% Inhal Sol (2.5 mg/3 mL) UD INH SCH (01:33)
[2016-10-06] MEDS ORDERED: Albuterol-Ipratrop 3 mg / 0.5 (3 ml) UD INH STA ×2 (08:14→08:24)
--- NOTE | 2016-10-06 08:36 | CP.PCM.PN ---
Subjective - Date & Time of Evaluation Date of Evaluation: 10/06/16 Time of Evaluation: 09:00 - Subjective Subjective: Rapid response note, Dr Leary attending. A rapid response was called around 9 AM this morning due to patient's worsening wheezing, chest pain, and chest tightness, and shortness of breath. His Oxygen saturation was arund 90% on 3L of nasal canula. His breath sounds were very diminished with wheezing heard in all lung treviño. A duoneb treatment and 125mg of Solumedrol were ordered immediately. He was then given one more duoneb treatment and also put on BIPAP at 12 and 6 at 50% Oxygen. We change his standing orders to 40mg of Solumedrol to Q6H and also Duoneb Q4H as well. We also gave the patient 1 mg of morphine IV as well and also 30mg of Toradol IV. His breath sounds became clearer with more air movement after the second duoneb treatment. We ordered for continue BIPAP as well. It is recommended patient be a longer acting inhaled steroid like pulmicort. Rapid response ended around 9:25 am. EKG showed normal sinus rythm, the rest of his vital signs were within normal limits. Dewayne Subramanian DO PGY2 Objective - Vital Signs/Intake and Output Vital Signs (last 24 hours): Temp Pulse Resp BP Pulse Ox 98.1 F 93 H 18 118/74 96 10/06/16 07:30 10/06/16 07:30 10/06/16 07:30 10/06/16 07:30 10/06/16 07:30 - Medications Medications: Current Medications Albuterol/Ipratropium (Duoneb 3 Mg/0.5 Mg (3 Ml) Ud) 3 ml INH RQ4 [facility] Amlodipine Besylate (Norvasc) 5 mg PO DAILY [facility] Escitalopram Oxalate (Lexapro) 10 mg PO DAILY [facility] Gabapentin (Neurontin) 300 mg PO TID [facility] Last Admin: 10/05/16 20:04 Dose: 300 mg Hydralazine HCl (Apresoline) 25 mg PO TID PRN PRN Reason: Systolic Blood Pressure Hydroxyzine HCl (Atarax) 50 mg PO Q6 PRN PRN Reason: Anxiety Azithromycin (Zithromax 500mg In Ns Addvantage) 500 mg in 250 mls @ 167 mls/hr IVPB Q24H [facility] Last Admin: 10/05/16 12:50 Dose: 167 mls/hr Methylprednisolone (Solu-Medrol) 40 mg IV Q6 [facility] Montelukast Sodium (Singulair) 10 mg PO HS [facility] Last Admin: 10/05/16 21:46 Dose: 10 mg Multivitamins (Hexavitamin) 1 tab PO DAILY [facility] Pantoprazole Sodium (Protonix Ec Tab) 40 mg PO DAILY [facility] Thiamine HCl (Vitamin B1 Tab) 100 mg PO DAILY [facility] Tramadol HCl (Ultram) 25 mg PO TID PRN PRN Reason: Pain, moderate (4-7) Trazodone HCl (Desyrel) 100 mg PO HS PRN PRN Reason: Insomnia Last Admin: 10/05/16 21:45 Dose: 100 mg
[2016-10-06] MEDS: Pantoprazole 40 mg EC Tab PO SCH (10:23)
[2016-10-06] MEDS: Multiple Vitamins Tab PO SCH (10:23)
[2016-10-06] MEDS: Tramadol 25 mg PO PRN ×2 (10:30→16:38)
[2016-10-06] MEDS: Albuterol-Ipratrop 3 mg / 0.5 (3 ml) UD INH SCH ×4 (11:27→23:44)
[2016-10-06] MEDS: MethylPREDNISolone 40 mg Vial IV SCH ×2 (11:59→18:01)
[2016-10-06] MEDS: Azithromycin 500mg/250ML NS 500 MG/250 ML BAG IVPB SCH (12:05)
--- NOTE | 2016-10-06 15:24 | CP.PCM.PN ---
Subjective - Date & Time of Evaluation Date of Evaluation: 10/06/16 Time of Evaluation: 13:00 - Subjective Subjective: improved asthma, observe Objective - Vital Signs/Intake and Output Vital Signs (last 24 hours): Temp Pulse Resp BP Pulse Ox 98.1 F 93 H 18 118/74 96 10/06/16 07:30 10/06/16 07:30 10/06/16 07:30 10/06/16 07:30 10/06/16 07:30 - Medications Medications: Current Medications Albuterol/Ipratropium (Duoneb 3 Mg/0.5 Mg (3 Ml) Ud) 3 ml INH RQ4 [facility] Last Admin: 10/06/16 11:27 Dose: 3 ml Amlodipine Besylate (Norvasc) 5 mg PO DAILY [facility] Last Admin: 10/06/16 10:23 Dose: 5 mg Escitalopram Oxalate (Lexapro) 10 mg PO DAILY [facility] Last Admin: 10/06/16 10:30 Dose: 10 mg Gabapentin (Neurontin) 300 mg PO TID [facility] Last Admin: 10/06/16 10:23 Dose: 300 mg Hydralazine HCl (Apresoline) 25 mg PO TID PRN PRN Reason: Systolic Blood Pressure Hydroxyzine HCl (Atarax) 50 mg PO Q6 PRN PRN Reason: Anxiety Azithromycin (Zithromax 500mg In Ns Addvantage) 500 mg in 250 mls @ 167 mls/hr IVPB Q24H [facility] Last Admin: 10/06/16 12:05 Dose: 167 mls/hr Methylprednisolone (Solu-Medrol) 40 mg IV Q6 [facility] Last Admin: 10/06/16 11:59 Dose: 40 mg Montelukast Sodium (Singulair) 10 mg PO HS [facility] Last Admin: 10/05/16 21:46 Dose: 10 mg Multivitamins (Hexavitamin) 1 tab PO DAILY [facility] Last Admin: 10/06/16 10:23 Dose: 1 tab Pantoprazole Sodium (Protonix Ec Tab) 40 mg PO DAILY [facility] Last Admin: 10/06/16 10:23 Dose: 40 mg Thiamine HCl (Vitamin B1 Tab) 100 mg PO DAILY [facility] Last Admin: 10/06/16 10:23 Dose: 100 mg Tramadol HCl (Ultram) 25 mg PO TID PRN PRN Reason: Pain, moderate (4-7) Last Admin: 10/06/16 10:30 Dose: 25 mg Trazodone HCl (Desyrel) 100 mg PO HS PRN PRN Reason: Insomnia Last Admin: 10/05/16 21:45 Dose: 100 mg - Constitutional Appears: Non-toxic - Head Exam Head Exam: ATRAUMATIC - Eye Exam Eye Exam: EOMI - ENT Exam ENT Exam: Mucous Membranes Moist - Neck Exam Neck Exam: absent: Lymphadenopathy, Thyromegaly - Respiratory Exam Respiratory Exam: Prolonged Expiratory Phase, Rhonchi, Wheezes. absent: Rales - Cardiovascular Exam Cardiovascular Exam: REGULAR RHYTHM. absent: Murmur - GI/Abdominal Exam GI & Abdominal Exam: Normal Bowel Sounds. absent: Organomegaly - Rectal Exam Rectal Exam: Deferred - Extremities Exam Extremities Exam: Normal Capillary Refill. absent: Calf Tenderness - Neurological Exam Neurological Exam: Alert, Oriented x3 - Psychiatric Exam Psychiatric exam: Normal Mood - Skin Skin Exam: Dry Assessment and Plan (1) Hypertension Status: Acute (2) Asthma Status: Chronic
--- NOTE | 2016-10-06 18:23 | CP.PCM.HP ---
History of Present Illness - History of Present Illness History of Present Illness: CC; shortness of breath & chest pain HPI: Patient is a 26 y/o male, whose PMHx includes HTN, bronchial asthma, presents to the ED for evaluation of increased shortness of breath associated with chest pain, sharp intense radiating to right shoulder for the last 3-4 days. Pt reports using his albuterol nebulizer at home with no relief. Pt has been seen here multiple times in the past with similar complaints, but has never been admitted to ICU or intubated in the past. Pt was given 3 nebulizer treatments, IV Solumedrol, and Magnesium in field. Otherwise, pt denies any fever, chills, n/v/d, chest pain, cough, or any other associated symptoms at this time. Present on Admission - Present on Admission Any Indicators Present on Admission: Yes History of DVT/PE: No History of Uncontrolled Diabetes: No Urinary Catheter: No Decubitus Ulcer Present: No Review of Systems - Review of Systems Systems not reviewed;Unavailable: Respiratory Distress - Constitutional Constitutional: Anorexia, Fatigue, Lethargy, Malaise - Cardiovascular Cardiovascular: Chest Pain, Dyspnea, Pain Radiating to Arm/Neck/Jaw, Radiating Pain. absent: As Per HPI, Acrocyanosis, Chest Pain at Rest, Chest Pain with Activity, Claudication, Diaphoresis, Dyspnea on Exertion, Edema, Irregular Heart Rhythm, Leg Edema, Leg Ulcers, Lightheadedness, Orthopnea, Palpitations, Paroxysmal Nocturnal Dyspnea, Pedal Edema, Rapid Heart Rate, Slow Heart Rate, Syncope, Other - Respiratory Respiratory: Cough, Dyspnea, Excessive Mucous Production, Change in Mucous Color - Gastrointestinal Gastrointestinal: absent: As Per HPI, Abdominal Pain, Belching, Bloating, Change in Bowel Habits, Change in Stool Character, Coffee Ground Emesis, Constipation, Cramping, Diarrhea, Dyspepsia, Dysphagia, Early Satiety, Excessive Flatus, Fecal Incontinence, Heartburn, Hematemesis, Hematochezia, Loose Stools, Melena, Nausea, Odynophagia, Temesmus, Vomiting, Other - Genitourinary Genitourinary: absent: As Per HPI, Change in Urinary Stream, Difficulty Urinating, Dysuria, Flank Pain, Hematuria, Pyuria, Nocturia, Urinary Incontinence, Urinary Frequency, Urinary Hesitance, Urinary Urgency, Voiding Freq/Small Amts, Freq UTI, Hx Renal/Bladder Calculi, Hx /Renal Surgery, Bladder Distension, Other Past Patient History - Infectious Disease Hx of Infectious Diseases: None - Past Medical History & Family History Past Medical History?: Yes - Past Social History Smoking Status: Never Smoked Alcohol: None Drugs: Denies, Other (cocaine in past, denies currently) Home Situation {Lives}: With Family Domestic Violence: Negative - CARDIAC Hx Hypertension: Yes - PULMONARY Hx Asthma: Yes - NEUROLOGICAL Hx Seizures: No - HEENT Hx HEENT Problems: No - RENAL Hx Chronic Kidney Disease: No - ENDOCRINE/METABOLIC Hx Endocrine Disorders: No - HEMATOLOGICAL/ONCOLOGICAL Hx Human Immunodeficiency Virus (HIV): No - INTEGUMENTARY Hx Dermatological Problems: No - MUSCULOSKELETAL/RHEUMATOLOGICAL Hx Musculoskeletal Disorders: No Hx Falls: No - GASTROINTESTINAL Hx Gastrointestinal Disorders: No - GENITOURINARY/GYNECOLOGICAL Hx Sexually Transmitted Disorders: No - PSYCHIATRIC Hx Anxiety: Yes Hx Substance Use: No - SURGICAL HISTORY Hx Surgeries: No - ANESTHESIA Hx Anesthesia: No Meds Allergies/Adverse Reactions: Allergies Allergy/AdvReac Type Severity Reaction Status Date / Time FISH Allergy RASH Verified 10/05/16 13:01 Penicillins Allergy RASH Verified 10/05/16 13:01 Physical Exam - Constitutional Appears: No Acute Distress - Head Exam Head Exam: ATRAUMATIC, NORMAL INSPECTION, NORMOCEPHALIC - Eye Exam Eye Exam: EOMI, Normal appearance, PERRL Pupil Exam: NORMAL ACCOMODATION, PERRL - ENT Exam ENT Exam: Mucous Membranes Moist, Normal Exam - Neck Exam Neck exam: Positive for: Normal Inspection - Respiratory Exam Respiratory Exam: Decreased Breath Sounds, Rales, Rhonchi - Cardiovascular Exam Cardiovascular Exam: REGULAR RHYTHM - GI/Abdominal Exam GI & Abdominal Exam: Normal Bowel Sounds, Soft. absent: Tenderness Results - Vital Signs Recent Vital Signs: Last Vital Signs Temp 97.7 F 10/06/16 15:15 Pulse 84 10/06/16 15:15 Resp 22 10/06/16 15:15 BP 114/72 10/06/16 15:15 Pulse Ox 95 10/06/16 15:15 - Labs Result Diagrams: 10/05/16 07:59 10/05/16 07:59 Labs: Laboratory Results - last 24 hr 10/05/16 10/05/16 10/05/16 22:07 22:07 22:23 Total Creatine Kinase 194 H CK-MB (Mass) 3.44 H Troponin I, Quant < 0.0120 Urine Color Yellow Urine Clarity Hazy Urine pH 5.0 Ur Specific [place] 1.040 H Urine Protein 1+ H Urine Glucose (UA) 2+ H Urine Ketones Trace Urine Blood Negative Urine Nitrate Negative Urine Bilirubin Negative Urine Urobilinogen Normal Ur Leukocyte Esterase 1+ H Urine WBC (Auto) 9 H Urine RBC (Auto) 2 Ur Squamous Epith Cells 1 Urine Bacteria Occ H Urine Opiates Screen Positive Urine Methadone Screen Negative Ur Barbiturates Screen Negative Ur Phencyclidine Scrn Negative Ur Amphetamines Screen Negative U Benzodiazepines Scrn Negative U Oth Cocaine Metabols Positive U Cannabinoids Screen Negative 10/06/16 07:17 Total Creatine Kinase 124 CK-MB (Mass) 2.97 Troponin I, Quant < 0.0120 Urine Color Urine Clarity Urine pH Ur Specific [place] Urine Protein Urine Glucose (UA) Urine Ketones Urine Blood Urine Nitrate Urine Bilirubin Urine Urobilinogen Ur Leukocyte Esterase Urine WBC (Auto) Urine RBC (Auto) Ur Squamous Epith Cells Urine Bacteria Urine Opiates Screen Urine Methadone Screen Ur Barbiturates Screen Ur Phencyclidine Scrn Ur Amphetamines Screen U Benzodiazepines Scrn U Oth Cocaine Metabols U Cannabinoids Screen Assessment & Plan (1) Hypertension Status: Acute (2) Pneumonia Status: Acute (3) Chest pain Status: Acute (4) Exacerbation of asthma Status: Acute - Assessment and Plan (Free Text) Plan: ADMIT Pt CT of chest Cardio eval nebulizer salmedrol
--- NOTE | 2016-10-06 18:23 | CP.PCM.PN ---
Subjective - Date & Time of Evaluation Date of Evaluation: 10/06/16 Time of Evaluation: 10:45 - Subjective Subjective: Pt seen and examined, shortness of breath improved but A rapid response was called around 9 AM this morning due to patient's worsening wheezing, chest pain , and chest tightness, and shortness of breath. His Oxygen saturation was arund 90% on 3L of nasal canula. His breath sounds were very diminished with wheezing heard in all lung treviño. A duoneb treatment and 125mg of Solumedrol were ordered immediately. He was then given one more duoneb treatment and also put on BIPAP at 12 and 6 at 50% Oxygen. We change his standing orders to 40mg of Solumedrol to Q6H and also Duoneb Q4H as well. We also gave the patient 1 mg of morphine IV as well and also 30mg of Toradol IV. His breath sounds became clearer with more air movement after the second duoneb treatment. We ordered for continue BIPAP as well. It is recommended patient be a longer acting inhaled steroid like pulmicort. Rapid response ended around 9:25 am. EKG showed normal sinus rythm, the rest of his vital signs were within normal limits. Objective - Vital Signs/Intake and Output Vital Signs (last 24 hours): Temp Pulse Resp BP Pulse Ox 97.7 F 84 22 114/72 95 10/06/16 15:15 10/06/16 15:15 10/06/16 15:15 10/06/16 15:15 10/06/16 15:15 - Medications Medications: Current Medications Albuterol/Ipratropium (Duoneb 3 Mg/0.5 Mg (3 Ml) Ud) 3 ml INH RQ4 [facility] Last Admin: 10/06/16 16:25 Dose: 3 ml Amlodipine Besylate (Norvasc) 5 mg PO DAILY [facility] Last Admin: 10/06/16 10:23 Dose: 5 mg Escitalopram Oxalate (Lexapro) 10 mg PO DAILY [facility] Last Admin: 10/06/16 10:30 Dose: 10 mg Gabapentin (Neurontin) 300 mg PO TID [facility] Last Admin: 10/06/16 18:00 Dose: 300 mg Hydralazine HCl (Apresoline) 25 mg PO TID PRN PRN Reason: Systolic Blood Pressure Hydroxyzine HCl (Atarax) 50 mg PO Q6 PRN PRN Reason: Anxiety Azithromycin (Zithromax 500mg In Ns Addvantage) 500 mg in 250 mls @ 167 mls/hr IVPB Q24H [facility] Last Admin: 10/06/16 12:05 Dose: 167 mls/hr Methylprednisolone (Solu-Medrol) 40 mg IV Q6 [facility] Last Admin: 10/06/16 18:01 Dose: 40 mg Montelukast Sodium (Singulair) 10 mg PO HS [facility] Last Admin: 10/05/16 21:46 Dose: 10 mg Multivitamins (Hexavitamin) 1 tab PO DAILY [facility] Last Admin: 10/06/16 10:23 Dose: 1 tab Pantoprazole Sodium (Protonix Ec Tab) 40 mg PO DAILY [facility] Last Admin: 10/06/16 10:23 Dose: 40 mg Thiamine HCl (Vitamin B1 Tab) 100 mg PO DAILY [facility] Last Admin: 10/06/16 10:23 Dose: 100 mg Tramadol HCl (Ultram) 25 mg PO TID PRN PRN Reason: Pain, moderate (4-7) Last Admin: 10/06/16 16:38 Dose: 25 mg Trazodone HCl (Desyrel) 100 mg PO HS PRN PRN Reason: Insomnia Last Admin: 10/05/16 21:45 Dose: 100 mg - Constitutional Appears: No Acute Distress - Head Exam Head Exam: ATRAUMATIC, NORMAL INSPECTION, NORMOCEPHALIC - Eye Exam Eye Exam: EOMI, Normal appearance, PERRL Pupil Exam: NORMAL ACCOMODATION, PERRL - Respiratory Exam Respiratory Exam: Decreased Breath Sounds, Prolonged Expiratory Phase, Rales, Rhonchi - Cardiovascular Exam Cardiovascular Exam: REGULAR RHYTHM, +S1, +S2. absent: Murmur - Rectal Exam Rectal Exam: Deferred - Neurological Exam Neurological Exam: Alert, Awake, CN II-XII Intact, Normal Gait, Oriented x3 - Psychiatric Exam Psychiatric exam: Normal Affect, Normal Mood - Skin Skin Exam: Dry, Intact, Normal Color, Warm Assessment and Plan (1) Hypertension Status: Acute (2) Pneumonia Status: Acute (3) Asthma Status: Chronic (4) Chest pain Status: Acute (5) Exacerbation of asthma Status: Acute
[2016-10-07] MEDS: MethylPREDNISolone 40 mg Vial IV SCH ×5 (00:04→23:25)
[2016-10-07] MEDS: Albuterol-Ipratrop 3 mg / 0.5 (3 ml) UD INH SCH ×5 (04:13→19:21)
[2016-10-07] MEDS: Pantoprazole 40 mg EC Tab PO SCH (09:09)
[2016-10-07] MEDS: Multiple Vitamins Tab PO SCH (09:10)
[2016-10-07] MEDS: Azithromycin 500mg/250ML NS 500 MG/250 ML BAG IVPB SCH (11:24)
[2016-10-07] MEDS: Tramadol 25 mg PO PRN ×2 (11:31→18:19)
[2016-10-07] MEDS ORDERED: DiphenhydrAMINE 50 mg/ml Inj IVP STA (13:09)
--- NOTE | 2016-10-07 14:31 | CP.PCM.PN ---
Subjective - Date & Time of Evaluation Date of Evaluation: 10/07/16 Time of Evaluation: 12:00 - Subjective Subjective: out of bed to chair, able to eat with no shortness of breath still with wheezing Objective - Vital Signs/Intake and Output Vital Signs (last 24 hours): Temp Pulse Resp BP Pulse Ox 97.5 F L 62 20 116/61 96 10/07/16 08:17 10/07/16 08:17 10/07/16 08:17 10/07/16 08:17 10/07/16 08:17 Intake and Output: 10/07/16 10/07/16 06:59 18:59 Intake Total 500 730 Balance 500 730 - Medications Medications: Current Medications Albuterol/Ipratropium (Duoneb 3 Mg/0.5 Mg (3 Ml) Ud) 3 ml INH RQ4 [facility] Last Admin: 10/07/16 11:54 Dose: 3 ml Amlodipine Besylate (Norvasc) 5 mg PO DAILY [facility] Last Admin: 10/07/16 09:08 Dose: 5 mg Escitalopram Oxalate (Lexapro) 10 mg PO DAILY [facility] Last Admin: 10/07/16 09:09 Dose: 10 mg Gabapentin (Neurontin) 300 mg PO TID [facility] Last Admin: 10/07/16 09:08 Dose: 300 mg Hydralazine HCl (Apresoline) 25 mg PO TID PRN PRN Reason: Systolic Blood Pressure Hydroxyzine HCl (Atarax) 50 mg PO Q6 PRN PRN Reason: Anxiety Last Admin: 10/06/16 21:59 Dose: 50 mg Azithromycin (Zithromax 500mg In Ns Addvantage) 500 mg in 250 mls @ 167 mls/hr IVPB Q24H [facility] Last Admin: 10/07/16 11:24 Dose: 167 mls/hr Methylprednisolone (Solu-Medrol) 40 mg IV Q6 [facility] Last Admin: 10/07/16 11:34 Dose: 40 mg Montelukast Sodium (Singulair) 10 mg PO HS [facility] Last Admin: 10/06/16 21:41 Dose: 10 mg Multivitamins (Hexavitamin) 1 tab PO DAILY [facility] Last Admin: 10/07/16 09:10 Dose: 1 tab Pantoprazole Sodium (Protonix Ec Tab) 40 mg PO DAILY [facility] Last Admin: 10/07/16 09:09 Dose: 40 mg Thiamine HCl (Vitamin B1 Tab) 100 mg PO DAILY [facility] Last Admin: 10/07/16 09:09 Dose: 100 mg Tramadol HCl (Ultram) 25 mg PO TID PRN PRN Reason: Pain, moderate (4-7) Last Admin: 10/07/16 11:31 Dose: 25 mg Trazodone HCl (Desyrel) 100 mg PO HS PRN PRN Reason: Insomnia Last Admin: 10/07/16 00:05 Dose: 100 mg - Constitutional Appears: No Acute Distress - Head Exam Head Exam: ATRAUMATIC - Eye Exam Eye Exam: EOMI - ENT Exam ENT Exam: Mucous Membranes Moist - Neck Exam Neck Exam: absent: Lymphadenopathy, Thyromegaly - Respiratory Exam Respiratory Exam: Prolonged Expiratory Phase, Rhonchi, Wheezes - Cardiovascular Exam Cardiovascular Exam: REGULAR RHYTHM. absent: Murmur - GI/Abdominal Exam GI & Abdominal Exam: Normal Bowel Sounds. absent: Organomegaly - Rectal Exam Rectal Exam: Deferred - Extremities Exam Extremities Exam: Normal Capillary Refill. absent: Calf Tenderness - Neurological Exam Neurological Exam: Alert, Oriented x3 - Psychiatric Exam Psychiatric exam: Normal Mood - Skin Skin Exam: Dry Assessment and Plan (1) Hypertension Status: Acute (2) Asthma Status: Chronic
--- NOTE | 2016-10-07 23:14 | CP.PCM.PN ---
Subjective - Date & Time of Evaluation Date of Evaluation: 10/07/16 Time of Evaluation: 10:20 - Subjective Subjective: Pt seen and evaluated out of bed to chair, able to eat with no shortness of breath still with wheezing Objective - Vital Signs/Intake and Output Vital Signs (last 24 hours): Temp Pulse Resp BP Pulse Ox 97.8 F 86 20 115/63 97 10/07/16 15:15 10/07/16 15:15 10/07/16 15:15 10/07/16 15:15 10/07/16 15:15 Intake and Output: 10/07/16 10/08/16 18:59 06:59 Intake Total 730 Balance 730 - Medications Medications: Current Medications Albuterol/Ipratropium (Duoneb 3 Mg/0.5 Mg (3 Ml) Ud) 3 ml INH RQ4 [facility] Last Admin: 10/07/16 19:21 Dose: 3 ml Amlodipine Besylate (Norvasc) 5 mg PO DAILY [facility] Last Admin: 10/07/16 09:08 Dose: 5 mg Escitalopram Oxalate (Lexapro) 10 mg PO DAILY [facility] Last Admin: 10/07/16 09:09 Dose: 10 mg Gabapentin (Neurontin) 300 mg PO TID [facility] Last Admin: 10/07/16 17:35 Dose: 300 mg Hydralazine HCl (Apresoline) 25 mg PO TID PRN PRN Reason: Systolic Blood Pressure Hydroxyzine HCl (Atarax) 50 mg PO Q6 PRN PRN Reason: Anxiety Last Admin: 10/06/16 21:59 Dose: 50 mg Azithromycin (Zithromax 500mg In Ns Addvantage) 500 mg in 250 mls @ 167 mls/hr IVPB Q24H [facility] Last Admin: 10/07/16 11:24 Dose: 167 mls/hr Methylprednisolone (Solu-Medrol) 40 mg IV Q6 [facility] Last Admin: 10/07/16 17:35 Dose: 40 mg Montelukast Sodium (Singulair) 10 mg PO HS [facility] Last Admin: 10/07/16 22:00 Dose: 10 mg Multivitamins (Hexavitamin) 1 tab PO DAILY [facility] Last Admin: 10/07/16 09:10 Dose: 1 tab Pantoprazole Sodium (Protonix Ec Tab) 40 mg PO DAILY [facility] Last Admin: 10/07/16 09:09 Dose: 40 mg Thiamine HCl (Vitamin B1 Tab) 100 mg PO DAILY [facility] Last Admin: 10/07/16 09:09 Dose: 100 mg Tramadol HCl (Ultram) 25 mg PO TID PRN PRN Reason: Pain, moderate (4-7) Last Admin: 10/07/16 18:19 Dose: 25 mg Trazodone HCl (Desyrel) 100 mg PO HS PRN PRN Reason: Insomnia Last Admin: 10/07/16 00:05 Dose: 100 mg - Constitutional Appears: No Acute Distress - Head Exam Head Exam: ATRAUMATIC, NORMAL INSPECTION, NORMOCEPHALIC - Eye Exam Eye Exam: EOMI, Normal appearance, PERRL Pupil Exam: NORMAL ACCOMODATION, PERRL - ENT Exam ENT Exam: Mucous Membranes Moist, Normal Exam - Respiratory Exam Respiratory Exam: Decreased Breath Sounds, Rhonchi, Wheezes - Cardiovascular Exam Cardiovascular Exam: REGULAR RHYTHM, +S1, +S2. absent: Murmur - GI/Abdominal Exam GI & Abdominal Exam: Soft, Normal Bowel Sounds. absent: Tenderness
[2016-10-08] MEDS: Albuterol-Ipratrop 3 mg / 0.5 (3 ml) UD INH SCH ×7 (00:23→23:33)
[2016-10-08] MEDS: MethylPREDNISolone 40 mg Vial IV SCH ×3 (05:09→21:57)
[2016-10-08] MEDS: Multiple Vitamins Tab PO SCH (09:09)
[2016-10-08] MEDS: Pantoprazole 40 mg EC Tab PO SCH (09:09)
[2016-10-08] MEDS ORDERED: Pneumococcal 23-Valent Vaccine IM ONE (10:00)
[2016-10-08 11:32] LABS: HEMATOCRIT 47.2 % (35.0-51.0); MEAN CELL VOLUME 85.3 fL (80.0-94.0); MEAN CORPUSCULAR HEMOGLOBIN 27.5 pg (27.0-31.0); MEAN CORPUSCULAR HGB CONC 32.2 g/dL (33.0-37.0); MEAN PLATELET VOLUME 10.5 fL (7.2-11.7); RED CELL DISTRIBUTION WIDTH 15.2 % (11.5-14.5); WHITE BLOOD COUNT 16.4 K/uL (4.8-10.8)
[2016-10-08 11:40] LABS: CHLORIDE 103 mmol/L (98-107)
[2016-10-08 11:41] LABS: POTASSIUM 3.7 mmol/L (3.6-5.2); SODIUM 139 mmol/L (132-148)
[2016-10-08 11:43] LABS: GFR AFRICAN-AMERICAN > 60
[2016-10-08 11:44] LABS: BLOOD UREA NITROGEN 15 mg/dL (9-20); CALCIUM 9.1 mg/dl (8.6-10.4); CARBON DIOXIDE 24 mmol/L (22-30); GLUCOSE,RANDOM 114 mg/dL (75-110)
[2016-10-08] MEDS: Azithromycin 500mg/250ML NS 500 MG/250 ML BAG IVPB SCH (11:45)
--- NOTE | 2016-10-08 12:13 | PCM.PSYCH ---
Initial Psychiatric Evaluation - Initial Psychiatric Evaluation Type of Admission: Voluntary Legal Status: Capacity Chief Complaint (in patient's own words): "I don't feel well." History of Present Illness and Precipitating Events: Patient was seen and evaluated, chart reviewed and discussed with the nurse. The patient is a 26yo male who is here with depression and anxiety. He states that he is single with a 2yo son. 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 He says that this change in job position had an effect on his everyday schedule and has brought on his depression. He also complains of anxiety attacks of which he says occur constantly. He says that during these attacks, his heart races, he feels hot, and that he worries about his job and his kid. He complains of poor sleep as well as a poor appetite. He denies feelings of guilt, S/I, H/I, or hallucinations. He also states that he lost his friend about a month ago in a motorcycle accident. He says that some days he feels energized but usually crashes in the afternoon, while other days he feels down. Hes been experiencing a loss of concentration and interest in daily activities. He states that he consumes a 12 pack of alcohol every day. He also states that he smokes cocaine occasionally about 1g/day. He started snorting cocaine 3 years ago but has been clean from alcohol and cocaine for 3 months now. He has been to detox here about 2 months ago [facility] He denies tobacco use or any legal issues such as probation. Currently he says that he feels alright and is taking the medications Alprazolam and Gabapentin but cant recall the rest. He has a past medical history of asthma and states that he has anger management issues as well. He denies a family history of substance abuse but states that his uncle and father both suffered from anxiety and anger management issues as well. The patient appears to have a depressed mood but is kempt. His speech is organized and his affect is appropriate. Current Medications: Active Medications Generic Name Dose Route Start Last Admin Trade Name Freq PRN Reason Stop Dose Admin Albuterol/Ipratropium 3 ml 10/06/16 12:00 10/08/16 11:44 Duoneb 3 Mg/0.5 Mg (3 Ml) Ud INH 3 ml RQ4 [facility] Administration Amlodipine Besylate 5 mg 10/06/16 10:00 10/08/16 09:09 Norvasc PO 5 mg DAILY [facility] Administration Escitalopram Oxalate 10 mg 10/06/16 10:00 10/08/16 09:10 Lexapro PO 10 mg DAILY [facility] Administration Gabapentin 300 mg 10/05/16 14:00 10/08/16 09:10 Neurontin PO 300 mg TID [facility] Administration Hydralazine HCl 25 mg 10/05/16 18:34 10/08/16 09:09 Apresoline PO 25 mg TID PRN Administration Systolic Blood Pressure Hydroxyzine HCl 50 mg 10/05/16 11:20 10/06/16 21:59 Atarax PO 50 mg Q6 PRN Administration Anxiety Azithromycin 500 mg in 250 mls @ 167 mls/hr 10/05/16 11:45 10/07/16 11:24 Zithromax 500mg In Ns Addvantage IVPB 167 mls/hr Q24H [facility] Administration Methylprednisolone 40 mg 10/06/16 12:00 10/08/16 05:09 Solu-Medrol IV 40 mg Q6 [facility] Administration Montelukast Sodium 10 mg 10/05/16 22:00 10/07/16 22:00 Singulair PO 10 mg HS [facility] Administration Multivitamins 1 tab 10/06/16 10:00 10/08/16 09:09 Hexavitamin PO 1 tab DAILY [facility] Administration Pantoprazole Sodium 40 mg 10/06/16 10:00 10/08/16 09:09 Protonix Ec Tab PO 40 mg DAILY [facility] Administration Thiamine HCl 100 mg 10/06/16 10:00 10/08/16 09:09 Vitamin B1 Tab PO 100 mg DAILY [facility] Administration Tramadol HCl 25 mg 10/06/16 00:37 10/07/16 18:19 Ultram PO 25 mg TID PRN Administration Pain, moderate (4-7) Trazodone HCl 100 mg 10/05/16 22:00 10/07/16 00:05 Desyrel PO 100 mg HS PRN Administration Insomnia Past Psychiatric History - Past Psychiatric History Previous Treatment History: Inpatient Pertinent Medical Hx (Current Medical&Sleep Prob, Allergies): Allergies Allergy/AdvReac Type Severity Reaction Status Date / Time FISH Allergy RASH Verified 10/05/16 13:01 Penicillins Allergy RASH Verified 10/05/16 13:01 Escitalopram [Lexapro] 10 mg PO DAILY #30 tab 08/09/16 Gabapentin [Neurontin] 300 mg PO TID #90 cap 08/09/16 Montelukast [Singulair] 10 mg PO HS #30 tab 08/09/16 Multivitamins [Hexavitamin] 1 tab PO DAILY #30 tab 08/09/16 Albuterol HFA [Ventolin HFA 90 mcg/actuation (8 g)] 1 puff IH Q4 PRN #1 inhaler 09/18/16 Thiamine HCl [B-1] 100 mg PO DAILY #20 tablet 09/18/16 amLODIPine [Norvasc] 5 mg PO DAILY #20 tab 09/18/16 hydrOXYzine HCl [Atarax] 50 mg PO Q6 PRN #20 tab 09/18/16 traZODone [Desyrel] 100 mg PO HS PRN #7 tab 09/18/16 Review of Systems - Review of Systems All systems: reviewed and no additional remarkable complaints except - Psychiatric Psychiatric: Anxiety, Behavioral Changes, Depression, Irritability, Mood Swings Mental Status Examination - Personal Presentation Personal Presentation: Looks stated age - Affect Affect: Constricted, Depressed - Motor Activity Motor Activity: Calm - Reliability in Providing Information Reliability in Providing Information: Good - Speech Speech: Organized - Mood Mood: Depressed, Anxious - Formal Thought Process Formal Thought Process: No Impairment - Obsessions/Compulsions Obsessions: No Compulsions: No - Cognitive Functions Orientation: Person, Place, Situation, Time Sensorium: Alert Attention/Concentration: Attentive Abstract Thinking: [place] Estimate of Intelligence: Below average Judgement: Imparied, as evidence by: Poor judgement, Intact, as evidence by: Insight regarding need for hospitalization - Risk Risk: Diminished functioning - Strength & Assets Inventory Strength & Assets Inventory: Cooperative - Limitations Limitations: Living alone DSM 5 DX - DSM 5 DSM 5 Diagnosis: Bipolar disorder mixed moderate 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 Cocaine use disorder severe in early remission - Recommended/Plan of Treatment Treatment Recommendations and Plan of Treatment: Bipolar disorder mixed moderate CBT Psychoeducation Supportive therapy, group therapy, individual therapy Lexapro 10 mg daily Depakote 250 mg by mouth twice a day Neurontin 300 mg by mouth 3 times a day Trazodone 100 mg by mouth daily at bedtime 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 CBT Psychoeducation Supportive therapy, individual therapy Use PA for abstinence Cocaine use disorder severe in early remission CBT Psychoeducation Supportive therapy, individual therapy Use PA for abstinence - Smoking Cessation Smoking Cessation Initiated: No
[2016-10-08] MEDS: Tramadol 25 mg PO PRN ×2 (12:34→21:57)
--- NOTE | 2016-10-08 13:13 | CP.PCM.PN ---
Subjective - Date & Time of Evaluation Date of Evaluation: 10/08/16 Time of Evaluation: 13:00 - Subjective Subjective: Less shortness of breath, on treatment for asthma, seen by psych, no chest pain. Observe Objective - Vital Signs/Intake and Output Vital Signs (last 24 hours): Temp Pulse Resp BP Pulse Ox 98 F 63 18 123/87 95 10/08/16 07:20 10/08/16 07:30 10/08/16 07:20 10/08/16 07:20 10/08/16 07:20 - Medications Medications: Current Medications Albuterol/Ipratropium (Duoneb 3 Mg/0.5 Mg (3 Ml) Ud) 3 ml INH RQ4 [facility] Last Admin: 10/08/16 11:44 Dose: 3 ml Amlodipine Besylate (Norvasc) 5 mg PO DAILY [facility] Last Admin: 10/08/16 09:09 Dose: 5 mg Divalproex Sodium (Depakote Dr) 250 mg PO BID [facility] Escitalopram Oxalate (Lexapro) 10 mg PO DAILY [facility] Last Admin: 10/08/16 09:10 Dose: 10 mg Gabapentin (Neurontin) 300 mg PO TID [facility] Last Admin: 10/08/16 09:10 Dose: 300 mg Hydralazine HCl (Apresoline) 25 mg PO TID PRN PRN Reason: Systolic Blood Pressure Last Admin: 10/08/16 09:09 Dose: 25 mg Hydroxyzine HCl (Atarax) 50 mg PO Q6 PRN PRN Reason: Anxiety Last Admin: 10/06/16 21:59 Dose: 50 mg Azithromycin (Zithromax 500mg In Ns Addvantage) 500 mg in 250 mls @ 167 mls/hr IVPB Q24H [facility] Last Admin: 10/08/16 11:45 Dose: 167 mls/hr Methylprednisolone (Solu-Medrol) 40 mg IV Q6 [facility] Last Admin: 10/08/16 12:37 Dose: 40 mg Montelukast Sodium (Singulair) 10 mg PO HS [facility] Last Admin: 10/07/16 22:00 Dose: 10 mg Multivitamins (Hexavitamin) 1 tab PO DAILY [facility] Last Admin: 10/08/16 09:09 Dose: 1 tab Pantoprazole Sodium (Protonix Ec Tab) 40 mg PO DAILY [facility] Last Admin: 10/08/16 09:09 Dose: 40 mg Thiamine HCl (Vitamin B1 Tab) 100 mg PO DAILY [facility] Last Admin: 10/08/16 09:09 Dose: 100 mg Tramadol HCl (Ultram) 25 mg PO TID PRN PRN Reason: Pain, moderate (4-7) Last Admin: 10/08/16 12:34 Dose: 25 mg Trazodone HCl (Desyrel) 100 mg PO HS PRN PRN Reason: Insomnia Last Admin: 10/07/16 00:05 Dose: 100 mg - Labs Labs: 10/08/16 11:16 10/08/16 11:16 - Constitutional Appears: Non-toxic - Head Exam Head Exam: ATRAUMATIC - Eye Exam Eye Exam: EOMI - ENT Exam ENT Exam: Mucous Membranes Moist - Neck Exam Neck Exam: absent: Lymphadenopathy, Thyromegaly - Respiratory Exam Respiratory Exam: Prolonged Expiratory Phase, Rhonchi - Cardiovascular Exam Cardiovascular Exam: REGULAR RHYTHM. absent: Murmur - GI/Abdominal Exam GI & Abdominal Exam: Normal Bowel Sounds. absent: Organomegaly - Rectal Exam Rectal Exam: Deferred - Extremities Exam Extremities Exam: Normal Capillary Refill. absent: Calf Tenderness - Neurological Exam Neurological Exam: Alert, Oriented x3 - Psychiatric Exam Psychiatric exam: Normal Mood - Skin Skin Exam: Dry Assessment and Plan (1) Hypertension Status: Acute (2) Asthma Status: Chronic
--- NOTE | 2016-10-08 13:43 | RAD ---
HISTORY: Pneumonia COMPARISON: 10/05/2016 TECHNIQUE: Chest PA and lateral FINDINGS: LUNGS: Bilateral lower lobe infiltrates/atelectasis. Overall interval improvement. PLEURA: No significant pleural effusion identified. No pneumothorax apparent. CARDIOVASCULAR: No radiographic findings to suggest acute or significant cardiovascular disease. OSSEOUS STRUCTURES: No significant abnormalities. VISUALIZED UPPER ABDOMEN: Normal. OTHER FINDINGS: None. IMPRESSION: Improving lower lobe infiltrates.
--- NOTE | 2016-10-08 14:31 | CARD ---
APPROVED REPORT EKG Measurement Heart [id number] CT [id number] <Conclusion> Sinus tachycardia Otherwise normal ECG
--- NOTE | 2016-10-08 16:22 | CP.PCM.CON ---
History of Present Illness - History of Present Illness History of Present Illness: admitted with PNA and exacerbation of asthma only using albuterol at home, no controller meds h/o asthma since childhood Review of Systems - Respiratory Respiratory: Cough, Dyspnea on Exertion, Wheezing, Change in Mucous Color Past Patient History - Infectious Disease Hx of Infectious Diseases: None - Past Medical History & Family History Past Medical History?: Yes - Past Social History Smoking Status: Never Smoked Alcohol: None Drugs: Denies, Other (cocaine in past, denies currently) Home Situation {Lives}: With Family Domestic Violence: Negative - CARDIAC Hx Hypertension: Yes - PULMONARY Hx Asthma: Yes - NEUROLOGICAL Hx Seizures: No - HEENT Hx HEENT Problems: No - RENAL Hx Chronic Kidney Disease: No - ENDOCRINE/METABOLIC Hx Endocrine Disorders: No - HEMATOLOGICAL/ONCOLOGICAL Hx Human Immunodeficiency Virus (HIV): No - INTEGUMENTARY Hx Dermatological Problems: No - MUSCULOSKELETAL/RHEUMATOLOGICAL Hx Musculoskeletal Disorders: No Hx Falls: No - GASTROINTESTINAL Hx Gastrointestinal Disorders: No - GENITOURINARY/GYNECOLOGICAL Hx Sexually Transmitted Disorders: No - PSYCHIATRIC Hx Anxiety: Yes Hx Substance Use: No - SURGICAL HISTORY Hx Surgeries: No - ANESTHESIA Hx Anesthesia: No Meds Allergies/Adverse Reactions: Allergies Allergy/AdvReac Type Severity Reaction Status Date / Time FISH Allergy RASH Verified 10/05/16 13:01 Penicillins Allergy RASH Verified 10/05/16 13:01 - Medications Medications: Current Medications Albuterol/Ipratropium (Duoneb 3 Mg/0.5 Mg (3 Ml) Ud) 3 ml INH RQ4 [facility] Last Admin: 10/08/16 15:59 Dose: 3 ml Amlodipine Besylate (Norvasc) 5 mg PO DAILY [facility] Last Admin: 10/08/16 09:09 Dose: 5 mg Divalproex Sodium (Depakote Dr) 250 mg PO BID [facility] Escitalopram Oxalate (Lexapro) 10 mg PO DAILY [facility] Last Admin: 10/08/16 09:10 Dose: 10 mg Gabapentin (Neurontin) 300 mg PO TID [facility] Last Admin: 10/08/16 14:17 Dose: 300 mg Hydralazine HCl (Apresoline) 25 mg PO TID PRN PRN Reason: Systolic Blood Pressure Hydroxyzine HCl (Atarax) 50 mg PO Q6 PRN PRN Reason: Anxiety Last Admin: 10/06/16 21:59 Dose: 50 mg Azithromycin (Zithromax 500mg In Ns Addvantage) 500 mg in 250 mls @ 167 mls/hr IVPB Q24H [facility] Last Admin: 10/08/16 11:45 Dose: 167 mls/hr Methylprednisolone (Solu-Medrol) 40 mg IV Q8H [facility] Montelukast Sodium (Singulair) 10 mg PO HS [facility] Last Admin: 10/07/16 22:00 Dose: 10 mg Multivitamins (Hexavitamin) 1 tab PO DAILY [facility] Last Admin: 10/08/16 09:09 Dose: 1 tab Pantoprazole Sodium (Protonix Ec Tab) 40 mg PO DAILY [facility] Last Admin: 10/08/16 09:09 Dose: 40 mg Thiamine HCl (Vitamin B1 Tab) 100 mg PO DAILY [facility] Last Admin: 10/08/16 09:09 Dose: 100 mg Tramadol HCl (Ultram) 25 mg PO TID PRN PRN Reason: Pain, moderate (4-7) Last Admin: 10/08/16 12:34 Dose: 25 mg Trazodone HCl (Desyrel) 100 mg PO HS PRN PRN Reason: Insomnia Last Admin: 10/07/16 00:05 Dose: 100 mg Physical Exam - Constitutional Appears: No Acute Distress - Head Exam Head Exam: ATRAUMATIC, NORMOCEPHALIC - Eye Exam Eye Exam: Normal appearance - ENT Exam ENT Exam: Mucous Membranes Moist - Neck Exam Neck exam: Positive for: Normal Inspection - Respiratory Exam Respiratory Exam: Decreased Breath Sounds, Rhonchi - Cardiovascular Exam Cardiovascular Exam: +S1, +S2 - GI/Abdominal Exam GI & Abdominal Exam: Normal Bowel Sounds - Rectal Exam Rectal Exam: Deferred - Neurological Exam Neurological exam: Alert, Oriented x3 - Psychiatric Exam Psychiatric exam: Normal Affect, Normal Mood - Skin Skin Exam: Intact Results - Vital Signs Recent Vital Signs: Last Vital Signs Temp 98 F 10/08/16 07:20 Pulse 63 10/08/16 07:30 Resp 18 10/08/16 07:20 BP 123/87 10/08/16 07:20 Pulse Ox 95 10/08/16 07:20 - Labs Result Diagrams: 10/08/16 11:16 10/08/16 11:16 Labs: Laboratory Results - last 24 hr 10/08/16 10/08/16 11:16 11:16 WBC 16.4 H RBC 5.54 Hgb 15.2 Hct 47.2 MCV 85.3 D MCH 27.5 MCHC 32.2 L RDW 15.2 H Plt Count 223 MPV 10.5 Sodium 139 Potassium 3.7 Chloride 103 Carbon Dioxide 24 Anion Gap 16 BUN 15 Creatinine 0.8 Est GFR ( Amer) > 60 Est GFR (Non-Af Amer) > 60 Random Glucose 114 H Calcium 9.1 Assessment & Plan (1) Pneumonia Status: Acute Comment: cxr improved with Rx (2) Exacerbation of asthma Status: Acute
[2016-10-08 16:30] VITALS: RESP 20
[2016-10-08] MEDS: Divalproex 250 mg DR Tab PO SCH (18:06)
[2016-10-08] MEDS: Fluticasone-Salmeterol 250-50mcg Diskus INH SCH (20:04)
--- NOTE | 2016-10-08 22:54 | CP.PCM.PN ---
Subjective - Date & Time of Evaluation Date of Evaluation: 10/08/16 Time of Evaluation: 18:30 - Subjective Subjective: ess shortness of breath, less cough, on treatment for exacerbation of asthma, seen by pulmonary with follow Objective - Vital Signs/Intake and Output Vital Signs (last 24 hours): Temp Pulse Resp BP Pulse Ox 97.6 F 91 H 20 104/64 95 10/08/16 15:11 10/08/16 15:11 10/08/16 15:11 10/08/16 15:11 10/08/16 15:11 - Medications Medications: Current Medications Albuterol/Ipratropium (Duoneb 3 Mg/0.5 Mg (3 Ml) Ud) 3 ml INH RQ4 [facility] Last Admin: 10/08/16 20:05 Dose: 3 ml Amlodipine Besylate (Norvasc) 5 mg PO DAILY [facility] Last Admin: 10/08/16 09:09 Dose: 5 mg Divalproex Sodium (Depakote Dr) 250 mg PO BID [facility] Last Admin: 10/08/16 18:06 Dose: 250 mg Escitalopram Oxalate (Lexapro) 10 mg PO DAILY [facility] Last Admin: 10/08/16 09:10 Dose: 10 mg Gabapentin (Neurontin) 300 mg PO TID [facility] Last Admin: 10/08/16 18:05 Dose: 300 mg Hydralazine HCl (Apresoline) 25 mg PO TID PRN PRN Reason: Systolic Blood Pressure Hydroxyzine HCl (Atarax) 50 mg PO Q6 PRN PRN Reason: Anxiety Last Admin: 10/06/16 21:59 Dose: 50 mg Azithromycin (Zithromax 500mg In Ns Addvantage) 500 mg in 250 mls @ 167 mls/hr IVPB Q24H [facility] Last Admin: 10/08/16 11:45 Dose: 167 mls/hr Methylprednisolone (Solu-Medrol) 40 mg IV Q8H [facility] Last Admin: 10/08/16 21:57 Dose: 40 mg Montelukast Sodium (Singulair) 10 mg PO HS [facility] Last Admin: 10/08/16 21:57 Dose: 10 mg Multivitamins (Hexavitamin) 1 tab PO DAILY [facility] Last Admin: 10/08/16 09:09 Dose: 1 tab Pantoprazole Sodium (Protonix Ec Tab) 40 mg PO DAILY [facility] Last Admin: 10/08/16 09:09 Dose: 40 mg Fluticasone/Salmeterol (Advair Diskus 250/50) 1 puff INH RQ12 [facility] Last Admin: 10/08/16 20:04 Dose: 1 puff Thiamine HCl (Vitamin B1 Tab) 100 mg PO DAILY [facility] Last Admin: 10/08/16 09:09 Dose: 100 mg Tramadol HCl (Ultram) 25 mg PO TID PRN PRN Reason: Pain, moderate (4-7) Last Admin: 10/08/16 21:57 Dose: 25 mg Trazodone HCl (Desyrel) 100 mg PO HS PRN PRN Reason: Insomnia Last Admin: 10/07/16 00:05 Dose: 100 mg - Labs Labs: 10/08/16 11:16 10/08/16 11:16 - Constitutional Appears: No Acute Distress - Head Exam Head Exam: ATRAUMATIC, NORMAL INSPECTION, NORMOCEPHALIC - Eye Exam Eye Exam: EOMI, Normal appearance, PERRL Pupil Exam: NORMAL ACCOMODATION, PERRL - ENT Exam ENT Exam: Mucous Membranes Moist, Normal Exam - Respiratory Exam Respiratory Exam: Clear to Ausculation Bilateral, NORMAL BREATHING PATTERN - Cardiovascular Exam Cardiovascular Exam: REGULAR RHYTHM, +S1, +S2. absent: Murmur - GI/Abdominal Exam GI & Abdominal Exam: Soft, Normal Bowel Sounds. absent: Tenderness Assessment and Plan (1) Hypertension Status: Acute (2) Pneumonia Status: Acute (3) Asthma Status: Chronic (4) Exacerbation of asthma Status: Acute
[2016-10-09] MEDS: Albuterol-Ipratrop 3 mg / 0.5 (3 ml) UD INH SCH ×4 (03:10→15:42)
[2016-10-09] MEDS: MethylPREDNISolone 40 mg Vial IV SCH ×2 (05:25→13:18)
[2016-10-09] MEDS: Fluticasone-Salmeterol 250-50mcg Diskus INH SCH (08:26)
[2016-10-09] MEDS: Pantoprazole 40 mg EC Tab PO SCH (09:25)
[2016-10-09] MEDS: Multiple Vitamins Tab PO SCH (09:25)
[2016-10-09] MEDS: Divalproex 250 mg DR Tab PO SCH ×2 (09:26→17:40)
[2016-10-09] MEDS: Azithromycin 500mg/250ML NS 500 MG/250 ML BAG IVPB SCH (11:45)
--- NOTE | 2016-10-09 12:48 | CP.PCM.PN ---
Subjective - Date & Time of Evaluation Date of Evaluation: 10/09/16 Time of Evaluation: 13:00 - Subjective Subjective: Less shortness of breath, less cough, on treatment for exacerbation of asthma, seen by pulmonary with follow Objective - Vital Signs/Intake and Output Vital Signs (last 24 hours): Temp Pulse Resp BP Pulse Ox 97.5 F L 54 L 20 131/69 94 L 10/09/16 07:10 10/09/16 07:10 10/09/16 07:10 10/09/16 07:10 10/09/16 07:10 - Medications Medications: Current Medications Albuterol/Ipratropium (Duoneb 3 Mg/0.5 Mg (3 Ml) Ud) 3 ml INH RQ4 [facility] Last Admin: 10/09/16 11:32 Dose: 3 ml Amlodipine Besylate (Norvasc) 5 mg PO DAILY [facility] Last Admin: 10/09/16 09:25 Dose: 5 mg Divalproex Sodium (Depakote Dr) 250 mg PO BID [facility] Last Admin: 10/09/16 09:26 Dose: 250 mg Escitalopram Oxalate (Lexapro) 10 mg PO DAILY [facility] Last Admin: 10/09/16 09:26 Dose: 10 mg Gabapentin (Neurontin) 300 mg PO TID [facility] Last Admin: 10/09/16 09:25 Dose: 300 mg Hydralazine HCl (Apresoline) 25 mg PO TID PRN PRN Reason: Systolic Blood Pressure Hydroxyzine HCl (Atarax) 50 mg PO Q6 PRN PRN Reason: Anxiety Last Admin: 10/06/16 21:59 Dose: 50 mg Azithromycin (Zithromax 500mg In Ns Addvantage) 500 mg in 250 mls @ 167 mls/hr IVPB Q24H [facility] Last Admin: 10/09/16 11:45 Dose: 167 mls/hr Methylprednisolone (Solu-Medrol) 40 mg IV Q8H [facility] Last Admin: 10/09/16 05:25 Dose: 40 mg Montelukast Sodium (Singulair) 10 mg PO HS [facility] Last Admin: 10/08/16 21:57 Dose: 10 mg Multivitamins (Hexavitamin) 1 tab PO DAILY [facility] Last Admin: 10/09/16 09:25 Dose: 1 tab Pantoprazole Sodium (Protonix Ec Tab) 40 mg PO DAILY [facility] Last Admin: 10/09/16 09:25 Dose: 40 mg Fluticasone/Salmeterol (Advair Diskus 250/50) 1 puff INH RQ12 [facility] Last Admin: 10/09/16 08:26 Dose: 1 puff Thiamine HCl (Vitamin B1 Tab) 100 mg PO DAILY [facility] Last Admin: 10/09/16 09:25 Dose: 100 mg Tramadol HCl (Ultram) 25 mg PO TID PRN PRN Reason: Pain, moderate (4-7) Last Admin: 10/08/16 21:57 Dose: 25 mg Trazodone HCl (Desyrel) 100 mg PO HS PRN PRN Reason: Insomnia Last Admin: 10/09/16 00:21 Dose: 100 mg - Labs Labs: 10/08/16 11:16 10/08/16 11:16 - Constitutional Appears: Non-toxic - Head Exam Head Exam: ATRAUMATIC - Eye Exam Eye Exam: EOMI - ENT Exam ENT Exam: Mucous Membranes Moist - Neck Exam Neck Exam: absent: Lymphadenopathy, Thyromegaly - Respiratory Exam Respiratory Exam: Clear to Ausculation Bilateral. absent: Rales, Rhonchi - Cardiovascular Exam Cardiovascular Exam: REGULAR RHYTHM. absent: Murmur - GI/Abdominal Exam GI & Abdominal Exam: Normal Bowel Sounds. absent: Organomegaly - Rectal Exam Rectal Exam: Deferred - Extremities Exam Extremities Exam: Normal Capillary Refill. absent: Calf Tenderness - Neurological Exam Neurological Exam: Alert, Oriented x3 - Psychiatric Exam Psychiatric exam: Normal Mood - Skin Skin Exam: Dry Assessment and Plan (1) Hypertension Status: Acute (2) Asthma Status: Chronic
--- NOTE | 2016-10-09 15:09 | PCM.PYCHPN ---
Psychiatric Progress Note - Psychiatric Progress Note Patient seen today, length of contact: 16 min Patient Chief Complaint: "I don't feel well." Medication Change: No Medical Record Reviewed: Yes Mental Status Examination - Cognitive Function Orientation: Person, Place, Situation, Time - Mood Mood: Depressed, Anxious - Affect Affect: Constricted, Depressed - Formal Thought Process Formal Thought Process: No Impairment Goal/Treatment Plan - Goal/Treatment Plan Progress Toward Problem(s) and Goals/Treatment Plan: Bipolar disorder mixed moderate CBT Psychoeducation Supportive therapy, group therapy, individual therapy Lexapro 10 mg daily Depakote 250 mg by mouth twice a day Neurontin 300 mg by mouth 3 times a day Trazodone 100 mg by mouth daily at bedtime 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 CBT Psychoeducation Supportive therapy, individual therapy Use [place] for abstinence Cocaine use disorder severe in early remission CBT Psychoeducation Supportive therapy, individual therapy Use [place] for abstinence
--- NOTE | 2016-10-09 15:21 | CP.PCM.PN ---
Subjective - Date & Time of Evaluation Date of Evaluation: 10/09/16 Time of Evaluation: 15:20 - Subjective Subjective: 26 Y/O MALE SEEN AND EXAMINED, ADMITTED FOR PNEUMONIA, ASTHMA, LUNGS CTA B/L TODAY, REPEAT CXRAY- IMPROVING LOWER LOBE INFILTRATION, DENIES ANY CP, OSB, RESP EASY AND UNLABORED. NAD. PT CLEARED FOR D/C PER DR CLARKE, DR RIVERA AND DR MARTINEZ, CONTINUE MEDS PER MED REC, FOLLOW UP WITH DR MARTINEZ IN THE OFFICE IN 2-3 DAYS, PT AGREE W/POC, VERBALIZE UNDERSTANDING. Objective - Vital Signs/Intake and Output Vital Signs (last 24 hours): Temp Pulse Resp BP Pulse Ox 97.5 F L 54 L 20 131/69 94 L 10/09/16 07:10 10/09/16 07:10 10/09/16 07:10 10/09/16 07:10 10/09/16 07:10 - Medications Medications: Current Medications Albuterol/Ipratropium (Duoneb 3 Mg/0.5 Mg (3 Ml) Ud) 3 ml INH RQ4 [facility] Last Admin: 10/09/16 11:32 Dose: 3 ml Amlodipine Besylate (Norvasc) 5 mg PO DAILY [facility] Last Admin: 10/09/16 09:25 Dose: 5 mg Divalproex Sodium (Depakote Dr) 250 mg PO BID [facility] Last Admin: 10/09/16 09:26 Dose: 250 mg Escitalopram Oxalate (Lexapro) 10 mg PO DAILY [facility] Last Admin: 10/09/16 09:26 Dose: 10 mg Gabapentin (Neurontin) 300 mg PO TID [facility] Last Admin: 10/09/16 13:11 Dose: 300 mg Hydralazine HCl (Apresoline) 25 mg PO TID PRN PRN Reason: Systolic Blood Pressure Hydroxyzine HCl (Atarax) 50 mg PO Q6 PRN PRN Reason: Anxiety Last Admin: 10/06/16 21:59 Dose: 50 mg Azithromycin (Zithromax 500mg In Ns Addvantage) 500 mg in 250 mls @ 167 mls/hr IVPB Q24H [facility] Last Admin: 10/09/16 11:45 Dose: 167 mls/hr Methylprednisolone (Solu-Medrol) 40 mg IV Q8H [facility] Last Admin: 10/09/16 13:18 Dose: 40 mg Montelukast Sodium (Singulair) 10 mg PO HS [facility] Last Admin: 10/08/16 21:57 Dose: 10 mg Multivitamins (Hexavitamin) 1 tab PO DAILY [facility] Last Admin: 10/09/16 09:25 Dose: 1 tab Pantoprazole Sodium (Protonix Ec Tab) 40 mg PO DAILY [facility] Last Admin: 10/09/16 09:25 Dose: 40 mg Fluticasone/Salmeterol (Advair Diskus 250/50) 1 puff INH RQ12 [facility] Last Admin: 10/09/16 08:26 Dose: 1 puff Thiamine HCl (Vitamin B1 Tab) 100 mg PO DAILY [facility] Last Admin: 10/09/16 09:25 Dose: 100 mg Tramadol HCl (Ultram) 25 mg PO TID PRN PRN Reason: Pain, moderate (4-7) Last Admin: 10/08/16 21:57 Dose: 25 mg Trazodone HCl (Desyrel) 100 mg PO HS PRN PRN Reason: Insomnia Last Admin: 10/09/16 00:21 Dose: 100 mg - Labs Labs: 10/08/16 11:16 10/08/16 11:16
--- NOTE | 2016-10-09 15:35 | CP.PCM.PN ---
Subjective - Date & Time of Evaluation Date of Evaluation: 10/09/16 Objective - Vital Signs/Intake and Output Vital Signs (last 24 hours): Temp Pulse Resp BP Pulse Ox 97.5 F L 54 L 20 131/69 94 L 10/09/16 07:10 10/09/16 07:10 10/09/16 07:10 10/09/16 07:10 10/09/16 07:10 - Medications Medications: Current Medications Albuterol/Ipratropium (Duoneb 3 Mg/0.5 Mg (3 Ml) Ud) 3 ml INH RQ4 [facility] Last Admin: 10/09/16 11:32 Dose: 3 ml Amlodipine Besylate (Norvasc) 5 mg PO DAILY [facility] Last Admin: 10/09/16 09:25 Dose: 5 mg Divalproex Sodium (Depakote Dr) 250 mg PO BID [facility] Last Admin: 10/09/16 09:26 Dose: 250 mg Escitalopram Oxalate (Lexapro) 10 mg PO DAILY [facility] Last Admin: 10/09/16 09:26 Dose: 10 mg Gabapentin (Neurontin) 300 mg PO TID [facility] Last Admin: 10/09/16 13:11 Dose: 300 mg Hydralazine HCl (Apresoline) 25 mg PO TID PRN PRN Reason: Systolic Blood Pressure Hydroxyzine HCl (Atarax) 50 mg PO Q6 PRN PRN Reason: Anxiety Last Admin: 10/06/16 21:59 Dose: 50 mg Azithromycin (Zithromax 500mg In Ns Addvantage) 500 mg in 250 mls @ 167 mls/hr IVPB Q24H [facility] Last Admin: 10/09/16 11:45 Dose: 167 mls/hr Methylprednisolone (Solu-Medrol) 40 mg IV Q8H [facility] Last Admin: 10/09/16 13:18 Dose: 40 mg Montelukast Sodium (Singulair) 10 mg PO HS [facility] Last Admin: 10/08/16 21:57 Dose: 10 mg Multivitamins (Hexavitamin) 1 tab PO DAILY [facility] Last Admin: 10/09/16 09:25 Dose: 1 tab Pantoprazole Sodium (Protonix Ec Tab) 40 mg PO DAILY [facility] Last Admin: 10/09/16 09:25 Dose: 40 mg Fluticasone/Salmeterol (Advair Diskus 250/50) 1 puff INH RQ12 [facility] Last Admin: 10/09/16 08:26 Dose: 1 puff Thiamine HCl (Vitamin B1 Tab) 100 mg PO DAILY [facility] Last Admin: 10/09/16 09:25 Dose: 100 mg Tramadol HCl (Ultram) 25 mg PO TID PRN PRN Reason: Pain, moderate (4-7) Last Admin: 10/08/16 21:57 Dose: 25 mg Trazodone HCl (Desyrel) 100 mg PO HS PRN PRN Reason: Insomnia Last Admin: 10/09/16 00:21 Dose: 100 mg - Labs Labs: 10/08/16 11:16 10/08/16 11:16 Assessment and Plan (1) Hypertension Status: Acute (2) Pneumonia Status: Acute (3) Asthma Status: Chronic (4) Exacerbation of asthma Status: Acute
[2016-10-09 16:19] VITALS: BP 124/74; PULSE 82; TEMP 97.9; O2SAT 96
== END 2016-10-09 18:20 | disposition home or self-care (01) | DRG 89 ==
LOC: C.ER 07:34 → C.9E 10:51 → C.3T 13:59 → C.6T 20:30
PROVIDERS: ADMIT Internal Medicine; ATTEND Internal Medicine
DX: J18.9 Pneumonia, unspecified organism (principal); J45.901 Unspecified asthma with (acute) exacerbation; F31.62 Bipolar disorder, current episode mixed, moderate; F14.90 Cocaine use, unspecified, uncomplicated; I10 Essential (primary) hypertension; F10.21 Alcohol dependence, in remission; F17.200 Nicotine dependence, unspecified, uncomplicated; F41.1 Generalized anxiety disorder; L50.9 Urticaria, unspecified; Z88.0 Allergy status to penicillin

== ENCOUNTER 2016-11-21 14:48 | Emergency (ER) | payer MEDICAID ==
[2016-11-21 15:06] VITALS: BP 121/81; PULSE 75; RESP 18; TEMP 98.5; O2SAT 96
--- NOTE | 2016-11-21 15:22 | C.PDOC ---
History Of Present Illness 26 year old male with past medical history of hypertension and asthma presents today for med refills. He states he ran out of his meds 4 days ago and called his primary Dr. Jennings today. He was not able to get an appointment until next week and is going out of town to [place] tomorrow. He has no complaints today denied CP, SOB. (Yanely Galarza) History Per: Patient Time Seen by Provider: 11/21/16 15:08 Chief Complaint (Nursing): Med Refill Past Medical History - Medical History PMH: Anxiety, Asthma, HTN Denies: Diabetes, Hepatitis, HIV, Chronic Kidney Disease, Seizures, Sexually Transmitted Disease Surgical History: No Surg Hx Family History: States: Unknown Family Hx - Social History Hx Tobacco Use: Yes Hx Alcohol Use: Yes Hx Substance Use: No - Immunization History Hx Tetanus Toxoid Vaccination: Yes Hx Influenza Vaccination: No Hx Pneumococcal Vaccination: No Review Of Systems Constitutional: Negative for: Fever, Chills Cardiovascular: Negative for: Chest Pain, Palpitations Respiratory: Negative for: Cough, Shortness of Breath Gastrointestinal: Negative for: Nausea, Vomiting, Abdominal Pain Neurological: Negative for: Weakness, Numbness Physical Exam - Physical Exam Appears: Well, Non-toxic, No Acute Distress Head: Atraumatic Oral Mucosa: Moist Neck: Normal Cardiovascular: Rhythm Regular Respiratory: Normal Breath Sounds, No Accessory Muscle Use, No Wheezing Gastrointestinal/Abdominal: Normal Exam, Soft, No Tenderness Male Genital: Normal Inspection Extremity: Normal ROM ED Course And Treatment O2 Sat by Pulse Oximetry: 96 Medical Decision Making Medical Decision Making: Medications refilled: Albuterol, Ventolin, Amlodipine, and Singulair (Yanely Galarza) pt seen with resident. here for med refill. no other complaints. lungs clear. advise outpt f/u (Jeremiah Dutton) Disposition - Disposition Disposition Time: 15:17 - Disposition Referrals: Reanna Jennings [Non-Staff] - Disposition: HOME/ ROUTINE Condition: GOOD Additional Instructions: Follow up with primary care doctor within 1-2 for follow up care. Return to ED if symptoms persist. Prescriptions: Albuterol HFA [Ventolin HFA 90 mcg/actuation (8 g)] 2 puff IH [id number] PRN #1 puff PRN Reason: Shortness Of Breath Albuterol 0.083% [Albuterol 0.083% Inhal Danna (2.5 mg/3 ml) UD] 2.5 mg IH Q6 PRN #20 neb PRN Reason: Shortness Of Breath amLODIPine [Norvasc] 5 mg PO DAILY #30 tab Montelukast Sodium [Singulair] 10 mg PO HS #30 tablet Forms: [employer] (Welsh), General Discharge Instructions - Clinical Impression Clinical Impression: Asthma, Hypertension
== END 2016-11-21 15:32 | disposition home or self-care (01) ==
LOC: C.ER 14:48
DX: I10 Essential (primary) hypertension (principal); J45.909 Unspecified asthma, uncomplicated; Z72.0 Tobacco use

== ENCOUNTER 2016-12-21 16:14 | Emergency (ER) | payer MEDICAID ==
[2016-12-21 16:33] VITALS: BMI 28.1
[2016-12-21 16:34] VITALS: TEMP 98.1
[2016-12-21] MEDS ORDERED: Albuterol-Ipratrop 3 mg / 0.5 (3 ml) UD ONE ×2 (16:37→18:13)
[2016-12-21] MEDS ORDERED: Albuterol-Ipratrop 3 mg / 0.5 (3 ml) UD INH STA ×2 (16:51→18:07)
[2016-12-21] MEDS ORDERED: Albuterol 0.083% Inhal Sol (2.5 mg/3 mL) UD IH STA ×2 (16:52→18:07)
[2016-12-21] MEDS ORDERED: Albuterol 0.083% Inhal Sol (2.5 mg/3 mL) UD ONE ×2 (16:56→18:13)
[2016-12-21 16:58] VITALS: O2SAT 94
--- NOTE | 2016-12-21 18:31 | C.PDOC ---
History Of Present Illness 26 y/o male, with PMHx of asthma, presents to ED for evaluation of worsening shortness of breath, wheezing, productive cough associated with yellow mucus for the past week. Pt has had previous admissions for asthma, but denies history of intubation. He denies chest pain, nausea, vomiting, fever/chills. Time Seen by Provider: 12/21/16 16:39 Chief Complaint (Nursing): Shortness Of Breath History Per: Patient History/Exam Limitations: no limitations Onset/Duration Of Symptoms: Days (1 week) Current Symptoms Are (Timing): Still Present Exacerbating Factor(s): Coughing Current Respiratory Medications: See Home Med List Associated Symptoms: Productive Cough. denies: Fever, Chills, Sweating, Chest Pain, Bloody Cough, Heart Racing, Leg/Calf Pain, Ankle/Leg Swelling, Dizziness, Light-headedness, Anxiety, Tingling In Hands Or Face, Musle Spasms In Hands Or Feet Recent travel outside of the [place]: No Additional History Per: Patient Past Medical History Reviewed: Historical Data, Nursing Documentation, Vital Signs Vital Signs: Last Vital Signs Temp 98.1 F 12/21/16 16:34 Pulse 91 H 12/21/16 19:11 Resp 20 12/21/16 19:11 BP 140/81 12/21/16 19:11 Pulse Ox 94 L 12/21/16 19:11 - Medical History PMH: Anxiety, Asthma, HTN - [facility] Procedures DETOXIFICATION SERVICES FOR SUBSTANCE ABUSE TREATMENT (08/06/16) GROUP OPHTHALMIC DISPENSER FOR SUBSTANCE ABUSE TREATMENT, PSYCHOEDUCATION (08/06/16) GROUP OPHTHALMIC DISPENSER FOR SUBSTANCE ABUSE, COGNITIVE BEHAVIORAL (08/06/16) INDIV OPHTHALMIC DISPENSER FOR SUBSTANCE ABUSE TREATMENT, PSYCHOEDUCATION (08/06/16) INDIV OPHTHALMIC DISPENSER FOR SUBSTANCE ABUSE, COGNITIVE BEHAVIORAL (08/06/16) INDIV PSYCHOTHERAPY FOR SUBSTANCE ABUSE TREATMENT, SUPPORT (08/06/16) Family History: States: No Known Family Hx - Social History Hx Tobacco Use: Yes Hx Alcohol Use: Yes Hx Substance Use: No - Immunization History Hx Tetanus Toxoid Vaccination: Yes Hx Influenza Vaccination: No Hx Pneumococcal Vaccination: No Review Of Systems Except As Marked, All Systems Reviewed And Found Negative. Constitutional: Negative for: Fever, Chills Cardiovascular: Negative for: Chest Pain, Palpitations, Edema, Light Headedness Respiratory: Positive for: Cough, Shortness of Breath, Sputum, Wheezing. Negative for: Hemoptysis Gastrointestinal: Negative for: Nausea, Vomiting, Abdominal Pain Physical Exam - Physical Exam Appears: Well, Non-toxic, No Acute Distress, Other (mild dyspnea) Skin: Normal Color, Warm, Dry, No Rash Eye(s): bilateral: Normal Inspection Oral Mucosa: Moist Neck: Supple Cardiovascular: Rhythm Regular (tachycardic), No Murmur Respiratory: No Accessory Muscle Use, No Rales, No Rhonchi, Wheezing (diffuse expiratory wheezing bilaterally), Other (speaking in short sentences) Gastrointestinal/Abdominal: Normal Exam, Bowel Sounds, Soft, No Tenderness Extremity: No Pedal Edema, No Calf Tenderness Extremity: Bilateral: Atraumatic, Normal ROM Neurological/Psych: Oriented x3 ED Course And Treatment O2 Sat by Pulse Oximetry: 94 (RA) Pulse Ox Interpretation: Normal - Radiology CXR: Interpreted by Me, Viewed By Me (right sided infiltrate ) - Other Rad CXR X-Ray: Viewed By Me, Read By Radiologist Interpretation: FINDINGS: LINES AND TUBES: None. LUNG AND PLEURA: There is patchy airspace disease in the right upper lobe. There is multifocal linear atelectasis in both lungs. HEART AND MEDIASTINUM: The heart is not enlarged. The hilar and mediastinal contours are within normal limits. SKELETAL STRUCTURES: The bony structures are within normal limits for the patient's age. VISUALIZED UPPER ABDOMEN: Normal. OTHER FINDINGS: None. IMPRESSION: Multifocal linear atelectasis in the lungs. Patchy airspace disease in the right upper lobe could represent subsegmental atelectasis or pneumonia. Follow- up after medical management is recommended to ensure complete resolution. Progress Note: Plan: CXR ordered and reviewed. Patient given Prednisone, and nebulizer treatments. Reevaluation Time: 19:10 Reassessment Condition: Improved (On reassessment, patient states he is feeling much better. On exam, he has good air entry B/L without wheezing or accessory muscle use. Patient given PO avelox, first dose in ED. Patient would like to be discharged home, and is significantly improved. Rxs given for Avelox, prednisone, tessalon, albuterol inhaler, singulair. Patient instructed to follow up with PMD in 1-2 days, and he understands he should return to ED if symptoms worsen.) Disposition Counseled Patient/Family Regarding: Studies Performed, Diagnosis, Need For Followup, Rx Given - Disposition Referrals: Kelsi Pitt APN [Non-Staff] - Disposition: HOME/ ROUTINE Disposition Time: 19:10 Condition: STABLE Additional Instructions: FOLLOW UP WITH YOUR DOCTOR IN 1-2 DAYS USE MEDICATIONS DIRECTED RETURN TO ER IF SYMPTOMS WORSEN Prescriptions: Albuterol HFA [Ventolin HFA 90 mcg/actuation (8 g)] 0.09 mg IH Q4 PRN #1 puff PRN Reason: Wheezing Benzonatate [Tessalon Perles] 100 mg PO BID PRN #15 sgl PRN Reason: Cough Montelukast Sodium [Singulair] 10 mg PO DAILY #30 tablet Moxifloxacin [Avelox] 400 mg PO DAILY #7 tab predniSONE [predniSONE Tab] 40 mg PO DAILY #8 tab Instructions: Asthma (ED), Pneumonia (ED) Forms: [employer] (Uruguayan) Print Language: OCCITAN - POA Present On Arrival: None - Clinical Impression Clinical Impression: Asthma exacerbation, Pneumonia - Scribe Statement The provider has reviewed the documentation as recorded by the Anthonyibdhara Stewart All medical record entries made by the Anthonyibdhara were at my direction and personally dictated by me. I have reviewed the chart and agree that the record accurately reflects my personal performance of the history, physical exam, medical decision making, and the department course for this patient. I have also personally directed, reviewed, and agree with the discharge instructions and disposition.
--- NOTE | 2016-12-21 18:35 | RAD ---
HISTORY: COMPARISON: 10/08/2016 TECHNIQUE: Chest PA and lateral FINDINGS: LINES AND TUBES: None. LUNG AND PLEURA: There is patchy airspace disease in the right upper lobe. There is multifocal linear atelectasis in both lungs. HEART AND MEDIASTINUM: The heart is not enlarged. The hilar and mediastinal contours are within normal limits. SKELETAL STRUCTURES: The bony structures are within normal limits for the patient's age. VISUALIZED UPPER ABDOMEN: Normal. OTHER FINDINGS: None. IMPRESSION: Multifocal linear atelectasis in the lungs. Patchy airspace disease in the right upper lobe could represent subsegmental atelectasis or pneumonia. Follow-up after medical management is recommended to ensure complete resolution.
[2016-12-21 19:11] VITALS: BP 140/81; PULSE 91; RESP 20
== END 2016-12-21 19:18 | disposition home or self-care (01) ==
LOC: C.ER 16:14
DX: J18.9 Pneumonia, unspecified organism (principal); J45.901 Unspecified asthma with (acute) exacerbation; Z72.0 Tobacco use

== ENCOUNTER 2017-08-27 13:35 | Emergency (ER) | payer MEDICAID ==
[2017-08-27 13:35] VITALS: BMI 28.1
[2017-08-27 13:42] VITALS: RESP 20; O2SAT 95
[2017-08-27] MEDS ORDERED: Albuterol-Ipratrop 3 mg / 0.5 (3 ml) UD INH STA (14:04)
[2017-08-27] MEDS ORDERED: Albuterol-Ipratrop 3 mg / 0.5 (3 ml) UD ONE ×2 (14:10→14:50)
--- NOTE | 2017-08-27 14:43 | C.PDOC ---
History Of Present Illness 26 y/o male presents to the ED requesting refill for asthma medication. States his PMD was not available today. States he had a coughing spasm yesterday and developed pain to the right rib, which worsens with movement and deep breathing. No fever or chills. No history of intubations. Time Seen by Provider: 08/27/17 13:47 Chief Complaint (Nursing): Med Refill History Per: Patient History/Exam Limitations: no limitations Onset/Duration Of Symptoms: Days Current Symptoms Are (Timing): Still Present Past Medical History Reviewed: Historical Data, Nursing Documentation, Vital Signs Vital Signs: Last Vital Signs Temp 98.2 F 08/27/17 15:54 Pulse 94 H 08/27/17 15:54 Resp 20 08/27/17 15:54 BP 154/85 H 08/27/17 15:54 Pulse Ox 95 08/27/17 15:55 - Medical History PMH: Anxiety, Asthma, HTN Denies: Diabetes, Hepatitis, HIV, Chronic Kidney Disease, Seizures, Sexually Transmitted Disease - [facility] Procedures DETOXIFICATION SERVICES FOR SUBSTANCE ABUSE TREATMENT (08/06/16) GROUP DIRECTOR OF CATERING SALES FOR SUBSTANCE ABUSE TREATMENT, PSYCHOEDUCATION (08/06/16) GROUP DIRECTOR OF CATERING SALES FOR SUBSTANCE ABUSE, COGNITIVE BEHAVIORAL (08/06/16) INDIV DIRECTOR OF CATERING SALES FOR SUBSTANCE ABUSE TREATMENT, PSYCHOEDUCATION (08/06/16) INDIV DIRECTOR OF CATERING SALES FOR SUBSTANCE ABUSE, COGNITIVE BEHAVIORAL (08/06/16) INDIV PSYCHOTHERAPY FOR SUBSTANCE ABUSE TREATMENT, SUPPORT (08/06/16) Family History: States: Unknown Family Hx - Social History Hx Tobacco Use: Yes Hx Alcohol Use: Yes (former) Hx Substance Use: No - Immunization History Hx Tetanus Toxoid Vaccination: Yes Hx Influenza Vaccination: No Hx Pneumococcal Vaccination: No Review Of Systems Except As Marked, All Systems Reviewed And Found Negative. Respiratory: Positive for: Cough Musculoskeletal: Positive for: Other (Right rib pain) Physical Exam - Physical Exam Appears: Non-toxic, No Acute Distress Skin: Normal Color, Warm, Dry Head: Atraumatic, Normacephalic Eye(s): bilateral: Normal Inspection, PERRL, EOMI Nose: Normal Oral Mucosa: Moist Neck: Normal ROM, Supple Chest: Symmetrical Cardiovascular: Rhythm Regular, No Murmur Respiratory: No Accessory Muscle Use, No Rales, No Rhonchi, Wheezing ( expiratory wheezing bilaterally) Extremity: Bilateral: Atraumatic, Normal Color And Temperature Neurological/Psych: Oriented x3, Normal Speech ED Course And Treatment O2 Sat by Pulse Oximetry: 95 (RA) Pulse Ox Interpretation: Normal - Radiology CXR: Viewed By Me, Read By Radiologist CXR Interpretation: Yes: No Acute Disease Medical Decision Making Medical Decision Making: Impression: Asthma, Muscle strain, Med Refill Plan: --Motrin 600 mg PO --Duoneb 3 ml INH --Chest x-ray --Peak Flow pre/post tx 15:13 Patient given PO Zithro and Prednisone On reevaluation, patient reports improvement in symptoms. Breathing is easy and non-labored. No respiratory distress. Diagnosis: Bronchitis, muscle strain Patient is stable for d/c home. Prescriptions provided. Patient advised to follow up with PMD in 1-2 days. Disposition Counseled Patient/Family Regarding: Studies Performed, Diagnosis, Need For Followup, Rx Given - Disposition Referrals: Carlos Manuel Zarate MD [Medical Doctor] - Disposition: HOME/ ROUTINE Disposition Time: 15:49 Condition: STABLE Additional Instructions: follow up with your doctor in 2 days call to make an appointment take medications as prescribed return to ER if symptoms worsens or progress Prescriptions: Acetaminophen/Codeine [Tylenol/Codeine 300 MG/30 MG] 1 tab PO Q6H PRN #12 tab PRN Reason: Pain, Severe (8-10) Albuterol 0.083% [Albuterol Sulfate 3 Ml] 3 ml IH Q6 PRN #50 neb PRN Reason: Cough And Congestion Albuterol Sulfate [Proventil Hfa] 2 puff IH QID PRN #1 hfa.aer.ad PRN Reason: Wheezing Azithromycin [Zithromax] 250 mg PO DAILY #4 tab Fluticasone/Vilanterol [Breo Ellipta 200-25 Mcg INH] 1 each IH DAILY #1 blst.w.dev Montelukast Sodium [Singulair] 10 mg PO DAILY #30 tablet Naproxen [Naprosyn] 500 mg PO BID PRN #16 tab PRN Reason: Pain, Moderate (4-7) predniSONE [predniSONE Tab] 50 mg PO DAILY #4 tab Instructions: Muscle Strain, Acute Bronchitis Forms: General Discharge Instructions, [facility] (Bengali), Work Excuse - Clinical Impression Clinical Impression: Bronchitis, Muscle strain - Scribe Statement The provider has reviewed the documentation as recorded by the Scribe (Sheron Catalan) Provider Attestation: All medical record entries made by the Scribe were at my direction and personally dictated by me. I have reviewed the chart and agree that the record accurately reflects my personal performance of the history, physical exam, medical decision making, and the department course for this patient. I have also personally directed, reviewed, and agree with the discharge instructions and disposition.
--- NOTE | 2017-08-27 15:44 | RAD ---
HISTORY: Cough. COMPARISON: 12/21/2016 TECHNIQUE: Chest PA and lateral FINDINGS: LUNGS: Interval improvement with respect to pulmonary parenchymal findings right upper lobe. Linear scarring remains. PLEURA: No significant pleural effusion identified. No pneumothorax apparent. CARDIOVASCULAR: Normal. OSSEOUS STRUCTURES: No significant abnormalities. VISUALIZED UPPER ABDOMEN: Normal. OTHER FINDINGS: None. IMPRESSION: No active disease.
[2017-08-27 15:55] VITALS: BP 154/85; PULSE 94; TEMP 98.2
== END 2017-08-27 16:03 | disposition home or self-care (01) ==
LOC: C.ER 13:35
DX: J40 Bronchitis, not specified as acute or chronic (principal); S29.011A Strain of muscle and tendon of front wall of thorax, initial encounter; X58.XXXA Exposure to other specified factors, initial encounter; Z76.0 Encounter for issue of repeat prescription

== ENCOUNTER 2018-05-05 15:34 | Emergency (ER) | payer MEDICAID ==
[2018-05-05 15:35] VITALS: BMI 28.1
[2018-05-05 16:09] VITALS: BP 121/77; PULSE 86; RESP 18; TEMP 98.9; O2SAT 95
[2018-05-05] MEDS ORDERED: Oxycodone/Acetaminophen 5/325 mg Tab PO STA (16:12)
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
--- NOTE | 2018-05-05 18:26 | RAD ---
Indication: trauma Pelvis radiograph, single view Comparison: None available Findings: No acute displaced fracture or dislocation identified. Sacroiliac joints appear intact. Mild constipation. Soft tissues appear unremarkable. No evidence of radiopaque foreign body. Impression: No acute displaced fracture or dislocation evident. If high clinical index of suspicion, suggest cross-sectional imaging for further evaluation. Otherwise, if symptoms persist or if there is continued clinical concern, x-ray follow-up in 7-10 days should be considered.
--- NOTE | 2018-05-05 18:28 | RAD ---
Right femur radiographs: 05/05/2018 Indication: trauma Comparison: None available Findings: There is no evidence of acute displaced fracture or dislocation. The soft tissues appear unremarkable. There are no radiopaque foreign bodies identified. Impression: No acute displaced fracture dislocation evident. If symptoms persist or if there is continued clinical concern, x-ray follow-up in 7-10 days should be considered.
== END 2018-05-05 18:13 | disposition home or self-care (01) ==
LOC: C.ER 15:34
DX: S02.2XXA Fracture of nasal bones, initial encounter for closed fracture (principal); S05.12XA Contusion of eyeball and orbital tissues, left eye, initial encounter; Y09 Assault by unspecified means

== ENCOUNTER 2018-07-02 14:41 | Emergency (ER) | payer MEDICAID ==
[2018-07-02 14:41] VITALS: BMI 28.1
[2018-07-02] MEDS ORDERED: Albuterol-Ipratrop 3 mg / 0.5 (3 ml) UD ONE ×2 (14:54→15:37)
[2018-07-02] MEDS ORDERED: Albuterol-Ipratrop 3 mg / 0.5 (3 ml) UD INH STA (14:56)
--- NOTE | 2018-07-02 15:10 | C.PDOC ---
History Of Present Illness 27 y/o male,w/PMhx presents to the ER for evaluation of fever,cough, and wheezing which has been present for the past few days. Patient states that he used Albuterol without relief. Patient denies having CP,SOB,nausea, vomiting, steroid use, hx of intubations,and hx of recent hospitalizations. Time Seen by Provider: 07/02/18 14:47 Chief Complaint (Nursing): Shortness Of Breath History Per: Patient History/Exam Limitations: no limitations Onset/Duration Of Symptoms: Days Current Symptoms Are (Timing): Still Present Severity: Moderate Past Medical History Reviewed: Historical Data, Nursing Documentation, Vital Signs Vital Signs: Last Vital Signs Temp 99.5 F 07/02/18 14:47 Pulse 115 H 07/02/18 14:47 Resp 20 07/02/18 14:47 BP 146/83 07/02/18 14:47 Pulse Ox 96 07/02/18 14:47 - Medical History PMH: Anxiety, Asthma, HTN Denies: Diabetes, Hepatitis, HIV, Chronic Kidney Disease, Seizures, Sexually Transmitted Disease Surgical History: No Surg Hx - [facility] Procedures DETOXIFICATION SERVICES FOR SUBSTANCE ABUSE TREATMENT (08/06/16) GROUP UPHOLSTERY TECH FOR SUBSTANCE ABUSE TREATMENT, PSYCHOEDUCATION (08/06/16) GROUP UPHOLSTERY TECH FOR SUBSTANCE ABUSE, COGNITIVE BEHAVIORAL (08/06/16) INDIV UPHOLSTERY TECH FOR SUBSTANCE ABUSE TREATMENT, PSYCHOEDUCATION (08/06/16) INDIV UPHOLSTERY TECH FOR SUBSTANCE ABUSE, COGNITIVE BEHAVIORAL (08/06/16) INDIV PSYCHOTHERAPY FOR SUBSTANCE ABUSE TREATMENT, SUPPORT (08/06/16) Family History: States: No Known Family Hx - Social History Hx Tobacco Use: Yes Hx Alcohol Use: Yes (former) Hx Substance Use: No - Immunization History Hx Tetanus Toxoid Vaccination: Yes Hx Influenza Vaccination: No Hx Pneumococcal Vaccination: No Review Of Systems Except As Marked, All Systems Reviewed And Found Negative. Constitutional: Positive for: Fever. Negative for: Chills Cardiovascular: Negative for: Chest Pain Respiratory: Positive for: Cough. Negative for: Shortness of Breath Gastrointestinal: Negative for: Nausea, Vomiting Physical Exam - Physical Exam Appears: No Acute Distress, Other (speaking in full sentences) Skin: Normal Color, Warm, Dry Head: Atraumatic, Normacephalic Eye(s): bilateral: Normal Inspection Nose: Normal Oral Mucosa: Moist Neck: Supple Chest: Symmetrical Cardiovascular: Rhythm Regular Respiratory: No Rales, Rhonchi (diffuse rhonchi), Wheezing (diffuse end expiratory wheezing) Gastrointestinal/Abdominal: Normal Exam, Soft, No Tenderness, No Guarding, No Rebound Neurological/Psych: Oriented x3, Normal Speech ED Course And Treatment - Laboratory Results Result Diagrams: 07/02/18 15:31 07/02/18 15:31 ECG: Interpreted By Me, Viewed By Me ECG Rhythm: Sinus Tachycardia Interpretation Of ECG: Sinus Tachycardia with normal intervals and normal axises Rate From EC O2 Sat by Pulse Oximetry: 96 (RA) Pulse Ox Interpretation: Normal Medical Decision Making Medical Decision Making: Plan: --Labs --CXR --Albuterol Updates: 17:15 On re-evaluation, patient states improvement in symptoms. I discussed results with patient. Patient is requesting prescription for nebulizer and inhaler. He would like to be discharged home. Disposition Counseled Patient/Family Regarding: Studies Performed, Diagnosis, Need For Followup - Disposition Referrals: Iris Kaye MD [Medical Doctor] - Disposition: HOME/ ROUTINE Disposition Time: 17:17 Condition: IMPROVED Additional Instructions: SIRENA CERDA, thank you for letting us take care of you today. Your provider was Katherine Dotson MD and you were treated for ASTHMA/CHEST PAIN/SOB. The emergency medical care you received today was directed at your acute symptoms. If you were prescribed any medication, please fill it and take as directed. It may take several days for your symptoms to resolve. Return to the Emergency Department if your symptoms worsen, do not improve, or if you have any other problems. Please contact your doctor for a follow up in 1-2 days. Bring any paperwork you were given at discharge with you along with any medications you are taking to your follow up visit. Our treatment cannot replace ongoing medical care by a primary care provider outside of the emergency department. Thank you for allowing the [facility] team to be part of your care today. If you had an X-Ray or CT scan: A Radiologist will review the ED reading if any change in treatment is needed we will contact you. If you had a blood, urine, or wound culture: It will take several days for the results, if any change in treatment is needed we will contact you. If you had an STI test: It will take 48 hours for the results. Please call after 1 week if you have not heard back. Prescriptions: Albuterol 0.083% [Albuterol Sulfate 3 Ml] 3 ml IH Q6 PRN 30 Days PRN Reason: Wheezing Albuterol HFA [Ventolin HFA 90 mcg/actuation (8 g)] 2 puff IH Q4H PRN #1 inhaler PRN Reason: Wheezing predniSONE [Prednisone] 40 mg PO DAILY #10 tab Instructions: Asthma, Adult (DC), Viral Upper Respiratory Infection, Adult (DC) Forms: [employer] (Niuean), General Discharge Instructions - POA Present On Arrival: None - Clinical Impression Clinical Impression: Upper respiratory infection, Asthma exacerbation, Medication refill - Scribe Statement The provider has reviewed the documentation as recorded by the Anthonyibe Aarti Prince Provider Attestation: All medical record entries made by the Scribe were at my direction and personally dictated by me. I have reviewed the chart and agree that the record accurately reflects my personal performance of the history, physical exam, medical decision making, and the department course for this patient. I have also personally directed, reviewed, and agree with the discharge instructions and disposition.
[2018-07-02] MEDS: Albuterol-Ipratrop 3 mg / 0.5 (3 ml) UD IH SCH ×3 (15:30→16:00)
[2018-07-02 15:39] LABS: BASO # 0.1 K/uL (0.0-0.2); BASO % 0.5 % (0.0-2.0); EOS # 0.2 K/uL (0.0-0.7); EOS % 1.3 % (0.0-4.0); HEMOGLOBIN 15.8 g/dL (12.0-18.0); LYMPH # 0.7 K/uL (1.0-4.3); LYMPH % 5.1 % (20.0-40.0); MEAN CELL VOLUME 86.4 fL (80.0-94.0); MEAN CORPUSCULAR HEMOGLOBIN 28.5 pg (27.0-31.0); MEAN PLATELET VOLUME 10.7 fL (7.2-11.7); MONO # 0.8 K/uL (0.0-0.8); MONO % 6.5 % (0.0-10.0); NEUT # 11.2 K/uL (1.8-7.0); NEUT % 86.6 % (50.0-75.0); PLATELET COUNT 222 K/uL (130-400); RBC 5.54 Mil/uL (4.40-5.90); WHITE BLOOD COUNT 12.9 K/uL (4.8-10.8)
[2018-07-02 15:45] LABS: ALB/GLOB RATIO 1.5 (1.0-2.1); ALBUMIN 4.3 g/dL (3.5-5.0); ALT/SGPT 38 U/L (21-72); AST/SGOT 31 U/L (17-59); BLOOD UREA NITROGEN 12 mg/dL (9-20); CALCIUM 8.9 mg/dl (8.6-10.4); GFR NON-AFRICAN AMERICAN > 60
--- NOTE | 2018-07-02 15:52 | RAD ---
Date of service: 07/02/2018 HISTORY: Shortness of breath COMPARISON: 08/27/2017. TECHNIQUE: Chest PA and lateral FINDINGS: LINES AND TUBES: None. LUNG AND PLEURA: The lungs are well inflated and clear. No pleural effusion or pneumothorax. HEART AND MEDIASTINUM: The heart is not enlarged. No aortic atherosclerotic calcifications present. The hilar and mediastinal contours are within normal limits. SKELETAL STRUCTURES: The bony structures are within normal limits for the patient's age. VISUALIZED UPPER ABDOMEN: Normal. OTHER FINDINGS: None. IMPRESSION: No active pulmonary disease.
[2018-07-02 16:31] LABS: BANDS 2 % (0-2); EOSINOPHIL 2 % (0-4); LYMPHOCYTE 6 % (20-40); MONOCYTE 5 % (0-10); NEUTROPHIL 85 % (50-75); TOTAL CELLS COUNTED 100
[2018-07-02 16:32] LABS: PLATELET ESTIMATE NORMAL (NORMAL)
[2018-07-02 18:16] VITALS: BP 132/81; PULSE 82; RESP 18; TEMP 98.8; O2SAT 100
--- NOTE | 2018-07-03 19:48 | CARD ---
APPROVED REPORT Date of service: 07/02/2018 EKG Measurement Heart [id number] VT [id number] <Conclusion> Sinus tachycardia Otherwise normal ECG
== END 2018-07-02 17:57 | disposition home or self-care (01) ==
LOC: C.ER 14:41
DX: J06.9 Acute upper respiratory infection, unspecified (principal); J45.901 Unspecified asthma with (acute) exacerbation; Z76.0 Encounter for issue of repeat prescription
CPT/HCPCS: 71046; 80053; 85025; 93005; 94640; 96374; 99284; J2930